=== PATIENT | male | born 1975 | race Hispanic/Latino ===

== ENCOUNTER 2023-01-28 10:00 | Outpatient (RCR) | payer OTHER, SELFPAY ==
--- NOTE | 2022-11-19 12:19 | PT.OIE ---
Current Diagnoses Traumatic arthropathy, right knee (11/19/22) Unilateral primary osteoarthritis, right hip (11/19/22) Other specified joint disorders, right hip (11/19/22) Trochanteric bursitis, right hip (11/19/22) Sprain of ligaments of lumbar spine, initial encounter (11/19/22) Bucket-handle tear of medial meniscus, current injury, right knee, initial encounter (11/19/22) Peripheral tear of medial meniscus, current injury, right knee, initial encounter (11/19/22) Complex tear of medial meniscus, current injury, right knee, initial encounter (11/19/22) Other tear of medial meniscus, current injury, right knee, initial encounter (11/19/22) Sprain of unspecified site of right knee, initial encounter (11/19/22) Visit Care Team Role Provider Type RENETTA Boateng Attending Provider Non-Staff Family Provider Primary Care Provider Referring Provider Specialty: Nursing Address: [address] [place] [address] [address], [place], [address] Email: Physical Therapy Initial Evaluation PT-OP-A Visit Information Start: 11/18/22 17:22 Freq: Status: Active Protocol: Document 11/19/22 12:19 AM (Rec: 11/19/22 14:14 AM [id number]) Out-Patient Physical Therapy Visit Information Visit Information Visit Type Initial Evaluation Visit Start Time 12:20 Visit Stop Time 13:10 Total Visit Minutes 50 Evaluation Information Evaluation Date 11/19/22 PT-OP-B Current Condition Start: 11/18/22 17:22 Freq: Status: Active Protocol: Document 11/19/22 12:19 AM (Rec: 11/19/22 14:14 AM [id number]) Current Condition History of Current Condition Onset Date 2004 Current Complaints bilateral knee, R hip, low back, neck pain and headaches, R shoulder pain History of Current Condition Pt had an injury to R knee in 2004 that resulted in meniscus tear, since then pt has had 20 surgeries. 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 The repair of his knee used a bone from R hip, which caused traumatic arthritis of the hip . Pt has low back pain as well . Pt has history of headaches and neck pain. Pt with reported weakness of R arm. Pt reports that he also has a meniscus tear on L knee. Hx of pulmonary embolism. Future Testing and Treatments Planned Pt sees his referring provider every 28 days. Treatment Goals Patient/Caregiver Goals Pt motivated to improve strength. Prior Functional Status Baseline Function- ADL's Independent Baseline Function- Mobility Independent Current Functional Impairments (Reported) Functional Limitations- ADL's Pt reports that he is independent, though it takes longer for him to do things because of pain and strength deficits. Pt reports difficulty sleeping and eating secondary pain. Pt with difficulty to stand to cook and do dishes. Functional Limitations- Mobility/Gait Pt ambulates with SPC. Pt reports that he was able to tolerate 2 hours of activity per day, but feels that his activity tolerance has been decreasing. Pt feels that he is able to tolerate 10 min of activity now. Functional Limitations- Recreation/ Pt unable to ride motorcycle Hobbies because of mobility impairments. Pt tried this at the beginning of the summer, but only able to do this for 15 minutes. PT-OP-C Subjective Start: 11/18/22 17:22 Freq: Status: Active Protocol: Document 11/19/22 12:19 AM (Rec: 11/19/22 14:14 AM [id number]) Patient Questionnaires Lower Extremity Functional Scale LEFS Score 26 LEFS Impairment 60 to 79% Impaired (Score 17- 31) Oswestry Low Back Index Oswestry Score 38 Oswestry Impairment 60 to 79% Impaired (Score 60- 79) OP-PT Pain Assessment Pain Assessment Grid Paper Pain Assessment Grid Completed Yes Location Back, knees, hips, neck Pain Location Details knees, R hip, low back, neck Intensity 8 Scale Used Numeric (0 - 10) Description- Other 8/10 at the worst Frequency Constant Pain Aggravating Factors Changing Position,Activity, Exercise,Standing,Sitting, Walking,Stair Climbing,Bending ,Lifting Pain Alleviating Factors Medication,Rest Other Pain Alleviating Factors Tens unit PT-OP-D Balance Start: 11/18/22 17:22 Freq: Status: Active Protocol: Document 11/19/22 12:19 AM (Rec: 11/19/22 14:14 AM [id number]) Balance Tests Single Limb Standing Single Limb- Right 11 Single Limb- Left 0 Tandem Tandem Standing 30 PT-OP-E Functional Tests Start: 11/18/22 17:22 Freq: Status: Active Protocol: Document 11/19/22 12:19 AM (Rec: 11/19/22 14:14 AM [id number]) Functional Tests 30 Second Sit to Stand Test Score 4 Comments Use of hands PT-OP-K Range of Motion Start: 11/18/22 17:22 Freq: Status: Active Protocol: Document 11/19/22 12:19 AM (Rec: 11/19/22 14:14 AM [id number]) Knee Goniometric Range of Motion Knee Right Flexion Active (degrees) 115 Extension Active (degrees) 0 Comments Hamstrings WNL Left Flexion Active (degrees) 115 Extension Active (degrees) 0 Comments Hamstrings WNL PT-OP-M Strength Start: 11/18/22 17:22 Freq: Status: Active Protocol: Document 11/19/22 12:19 AM (Rec: 11/19/22 14:14 AM [id number]) Hip Strength Hip Manual Muscle Testing Right Flexion (L2) 3+ Fair+ Abduction 3+ Fair+ Adduction 4+ Good+ Left Flexion (L2) 3+ Fair+ Abduction 3+ Fair+ Adduction 4+ Good+ Knee Strength Knee Manual Muscle Testing Right Flexion (S2) 4- Good- Extension (L3) 4- Good- Left Flexion (S2) 4- Good- Extension (L3) 4- Good- Ankle/Foot Strength Ankle and Foot Manual Muscle Testing Right Dorsiflexion (L4) 4+ Good+ Plantarflexion (S1) 4+ Good+ Left Dorsiflexion (L4) 4+ Good+ Plantarflexion (S1) 4+ Good+ PT-OP-Q Treatments Start: 11/18/22 17:22 Freq: Status: Active Protocol: Document 11/19/22 12:19 AM (Rec: 11/19/22 14:14 AM [id number]) Therapeutic Exercises Supine Exercises PPT Supine Exercise Name PPT Reps/Minutes 5x5 sec Comments cues for breath SAQ Side bilateral Reps/Minutes 5x2 sec Sidelying Exercises clamshells Side bilateral Reps/Minutes 10 PT-OP-T Assessment and Plan Start: 11/18/22 17:22 Freq: Status: Active Protocol: Document 11/19/22 12:19 AM (Rec: 11/19/22 14:14 AM [id number]) Physical Therapy Assessment Rehab Potential Rehabilitation Potential Good Evaluation Complexity Number of Personal Factors/Comorbidities 3 or More Number of Body Systems Impaired 3 Clinical Presentation at Evaluation Stable Impairments Impairments Activity Tolerance,Balance, Coordination,Edema,Functional Activities,Functional Mobility ,Gait,Pain,Posture,ROM,Soft Tissue Mobility,Strength Goals Pain Impairment Pain rating Impairment Pt reports pain at 8/10 at worst at knees, hip and low back. Short Term Goal (STG) Pt to report pain at 6/10 at worst. STG Duration 12/10/22 Repairer Wood Furniture Goal (LTG) Pt to report pain at <4/10 at worst LTG Duration 12/31/22 SLS Impairment Balance Impairment Pt unable to SLS on L LE and 11 seconds on R. Short Term Goal (STG) Pt able to SLS for 5 seconds on L LE. STG Duration 12/10/22 Repairer [employer] Furniture Goal (LTG) Pt able to SLS for 10 seconds on L LE. LTG Duration 12/31/22 30 sec STS squat Impairment Strength Impairment Pt able to complete 4 STS squats in 30 seconds with use of UE . Short Term Goal (STG) Pt able to complete 8 STS squats in 30 seconds with use of UE. STG Duration 12/10/22 Repairer Wood Furniture Goal (LTG) Pt ablet to complete 10 STS squats in 30 seconds without use of UE. LTG Duration 12/31/22 Oswestry Impairment Oswestry Impairment Pt with 76% disability per Oswestry. Short Term Goal (STG) Pt with 50% disability per Oswestry questionnaire STG Duration 12/10/22 Repairer Wood Furniture Goal (LTG) Pt with <25% disability per Oswestry questionnaire LTG Duration 12/31/22 LEFS Impairment Pt with LEFS score of 26/80 Short Term Goal (STG) Pt with LEFS score of 35/80 to decrease LE functional impairment. STG Duration 12/10/22 Repairer Wood Furniture Goal (LTG) Pt with LEFS score of 45/80 to decrease LE functional impairment. LTG Duration 12/31/22 Activity tolerance Impairment Standing tolerance Impairment Pt reports that he is able to stand for 10 min before needs to sit. Short Term Goal (STG) Pt able to stand for 20 min before needs to sit down to improve tolerance to cleaning/ cooking tasks. STG Duration 12/10/22 Repairer Wood Furniture Goal (LTG) Pt able to stand for 30 min before need to sit down secondary to pain/fatigue. LTG Duration 12/31/22 Assessment Summary Assessment Nas Bertrand presents to PT to address chronic pain at bilateral knees, low back, R hip and neck. Pt with history of 20 surgeries that he has had since 2004, with that first surgery being a R knee meniscus surgery. Pt has had a R TKA, though had an infection following and reports that he has not had proper PT following. Pt with strength deficits at B LE. Pt with difficulty with lower abdominal activation, secondary to prior abdominal surgeries and deconditioning. Pt demonstrates limitations at bilateral knee flexion at 115 deg. Pt with poor activity tolerance, secondary to reported pain and weakness. Pt demonstrates antalgic gait pattern, ambulating with SPC today. Pt tolerated HEP well, though encouraged to avoid painful ranges and do exercises to tolerance. Pt expresses motivation to improve strength and mobility. Pt would benefit from continued PT to improve strength, balance and mobility to improve tolerance to functional and recreational activities. Physical Therapy Plan Frequency and Duration Frequency of Treatment 2x/Week Duration of treatment (weeks) 6 Plan of Care Start Date 11/19/22 Plan of Care End Date 12/31/22 Therapeutic Interventions Therapeutic Interventions Balance Training,Coordination Training,Gait Training,Home Exercise Program,Joint Mobilizations,Manual Therapy, Neuromuscular Re-education, Patient/Caregiver Education, Self-Care/Home Management,Soft Tissue Mobilization,Taping, Therapeutic Activities, Therapeutic Exercises Modalities Cold Pack/Ice Massage,Electric Stimulation,Hot Packs, Ultrasound Next Visit Focus/Plan Next Note Type Treatment Note Next Visit Plan Further assessment of spine, progress LE strength and mobility, progress endurance
--- NOTE | 2022-11-21 12:19 | PT.OTN ---
Current Diagnoses Traumatic arthropathy, right knee (11/21/22) Unilateral primary osteoarthritis, right hip (11/21/22) Other specified joint disorders, right hip (11/21/22) Trochanteric bursitis, right hip (11/21/22) Sprain of ligaments of lumbar spine, initial encounter (11/21/22) Bucket-handle tear of medial meniscus, current injury, right knee, initial encounter (11/21/22) Peripheral tear of medial meniscus, current injury, right knee, initial encounter (11/21/22) Complex tear of medial meniscus, current injury, right knee, initial encounter (11/21/22) Other tear of medial meniscus, current injury, right knee, initial encounter (11/21/22) Sprain of unspecified site of right knee, initial encounter (11/21/22) Physical Therapy Treatment Note PT-OP-A Visit Information Start: 11/18/22 17:22 Freq: Status: Active Protocol: Document 11/21/22 12:19 AM (Rec: 11/21/22 13:07 AM [id number]) Out-Patient Physical Therapy Visit Information Visit Information Visit Type Treatment Note Visit Start Time 12:19 Visit Stop Time 12:59 Total Visit Minutes 40 Visit Number 2 PT-OP-B Current Condition Start: 11/18/22 17:22 Freq: Status: Active Protocol: Document 11/21/22 12:19 AM (Rec: 11/21/22 13:07 AM [id number]) Current Condition History of Current Condition Onset Date 2004 Current Complaints bilateral knee, R hip, low back, neck pain and headaches, R shoulder pain History of Current Condition Pt had an injury to R knee in 2004 that resulted in meniscus tear, since then pt has had 20 surgeries. 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 The repair of his knee used a bone from R hip, which caused traumatic arthritis of the hip . Pt has low back pain as well . Pt has history of headaches and neck pain. Pt with reported weakness of R arm. Pt reports that he also has a meniscus tear on L knee. Hx of pulmonary embolism. Future Testing and Treatments Planned Pt sees his referring provider every 28 days. PT-OP-C Subjective Start: 11/18/22 17:22 Freq: Status: Active Protocol: Document 11/21/22 12:19 AM (Rec: 11/21/22 13:07 AM [id number]) OP-PT Subjective Patient Comments Patient Comments Pt reports that he is tired today, secondary to difficulty with sleep. Pt has a PCP appt on 11/27/22 and 12/18/22. Pt reports that he has pushed activity levels the last few days. PT-OP-D Balance Start: 11/18/22 17:22 Freq: Status: Active Protocol: Document 11/19/22 12:19 AM (Rec: 11/19/22 14:14 AM [id number]) Balance Tests Single Limb Standing Single Limb- Right 11 Single Limb- Left 0 Tandem Tandem Standing 30 PT-OP-E Functional Tests Start: 11/18/22 17:22 Freq: Status: Active Protocol: Document 11/19/22 12:19 AM (Rec: 11/19/22 14:14 AM [id number]) Functional Tests 30 Second Sit to Stand Test Score 4 Comments Use of hands PT-OP-K Range of Motion Start: 11/18/22 17:22 Freq: Status: Active Protocol: Document 11/19/22 12:19 AM (Rec: 11/19/22 14:14 AM [id number]) Knee Goniometric Range of Motion Knee Right Flexion Active (degrees) 115 Extension Active (degrees) 0 Comments Hamstrings WNL Left Flexion Active (degrees) 115 Extension Active (degrees) 0 Comments Hamstrings WNL PT-OP-M Strength Start: 11/18/22 17:22 Freq: Status: Active Protocol: Document 11/19/22 12:19 AM (Rec: 11/19/22 14:14 AM [id number]) Hip Strength Hip Manual Muscle Testing Right Flexion (L2) 3+ Fair+ Abduction 3+ Fair+ Adduction 4+ Good+ Left Flexion (L2) 3+ Fair+ Abduction 3+ Fair+ Adduction 4+ Good+ Knee Strength Knee Manual Muscle Testing Right Flexion (S2) 4- Good- Extension (L3) 4- Good- Left Flexion (S2) 4- Good- Extension (L3) 4- Good- Ankle/Foot Strength Ankle and Foot Manual Muscle Testing Right Dorsiflexion (L4) 4+ Good+ Plantarflexion (S1) 4+ Good+ Left Dorsiflexion (L4) 4+ Good+ Plantarflexion (S1) 4+ Good+ PT-OP-Q Treatments Start: 11/18/22 17:22 Freq: Status: Active Protocol: Document 11/21/22 12:19 AM (Rec: 11/21/22 13:07 AM [id number]) Cardio Equipment Recumbent Stepper (Sci-Fit) Duration (Minutes) 6 Resistance 1 Seat Position 16 Therapeutic Exercises Supine Exercises BKFO Supine Exercise Name Bent knee fall out Side bilateral Reps/Minutes 2x5 ea LE quad sets Supine Exercise Name Quad sets Side bilateral Reps/Minutes 6x5 sec hold PPT Supine Exercise Name PPT Reps/Minutes 5x5 sec Comments cues for breath SAQ Side bilateral Equipment Used foam roll under knees Reps/Minutes x10 ea LE Standing Exercises calf raise Standing Exercise Name standing calf raise Side bilateral Equipment Used // bars Reps/Minutes x10 Standing side steps Standing Exercise Name side step Side bilateral Equipment Used // bars Reps/Minutes [address] Hip abduction Standing Exercise Name Hip abduction Side bilateral Equipment Used // bars Reps/Minutes x10 Calf stretch Standing Exercise Name standing calf stretch Side bilateral Equipment Used wedge with UE support from rail Reps/Minutes 2x30 sec PT-OP-T Assessment and Plan Start: 11/18/22 17:22 Freq: Status: Active Protocol: Document 11/21/22 12:19 AM (Rec: 11/21/22 13:07 AM [id number]) Physical Therapy Assessment Impairments Impairments Activity Tolerance,Balance, Coordination,Edema,Functional Activities,Functional Mobility ,Gait,Pain,Posture,ROM,Soft Tissue Mobility,Strength Goals Pain Impairment Pain rating Impairment Pt reports pain at 8/10 at worst at knees, hip and low back. Short Term Goal (STG) Pt to report pain at 6/10 at worst. STG Duration 12/10/22 Fdc Goal (LTG) Pt to report pain at <4/10 at worst LTG Duration 12/31/22 SLS Impairment Balance Impairment Pt unable to SLS on L LE and 11 seconds on R. Short Term Goal (STG) Pt able to SLS for 5 seconds on L LE. STG Duration 12/10/22 Fdc Goal (LTG) Pt able to SLS for 10 seconds on L LE. LTG Duration 12/31/22 30 sec STS squat Impairment Strength Impairment Pt able to complete 4 STS squats in 30 seconds with use of UE . Short Term Goal (STG) Pt able to complete 8 STS squats in 30 seconds with use of UE. STG Duration 12/10/22 Fdc Goal (LTG) Pt ablet to complete 10 STS squats in 30 seconds without use of UE. LTG Duration 12/31/22 Oswestry Impairment Oswestry Impairment Pt with 76% disability per Oswestry. Short Term Goal (STG) Pt with 50% disability per Oswestry questionnaire STG Duration 12/10/22 Relay Tester Helper Goal (LTG) Pt with <25% disability per Oswestry questionnaire LTG Duration 12/31/22 LEFS Impairment Pt with LEFS score of 26/80 Short Term Goal (STG) Pt with LEFS score of 35/80 to decrease LE functional impairment. STG Duration 12/10/22 Fdc Goal (LTG) Pt with LEFS score of 45/80 to decrease LE functional impairment. LTG Duration 12/31/22 Activity tolerance Impairment Standing tolerance Impairment Pt reports that he is able to stand for 10 min before needs to sit. Short Term Goal (STG) Pt able to stand for 20 min before needs to sit down to improve tolerance to cleaning/ cooking tasks. STG Duration 12/10/22 Fdc Goal (LTG) Pt able to stand for 30 min before need to sit down secondary to pain/fatigue. LTG Duration 12/31/22 Assessment Summary Assessment Pt with occasional reports of L knee cramping during CKC exercises. Pt challenged with lumbo-pelvic stability with BKFO, requiring cueing. Pt also requires cueing for breath during exercises. Pt will return to PT next week to gradually progress LE and trunk strength to improve tolerance to functional activities. Physical Therapy Plan Frequency and Duration Frequency of Treatment 2x/Week Duration of treatment (weeks) 6 Plan of Care Start Date 11/19/22 Plan of Care End Date 12/31/22 Therapeutic Interventions Therapeutic Interventions Balance Training,Coordination Training,Gait Training,Home Exercise Program,Joint Mobilizations,Manual Therapy, Neuromuscular Re-education, Patient/Caregiver Education, Self-Care/Home Management,Soft Tissue Mobilization,Taping, Therapeutic Activities, Therapeutic Exercises Modalities Cold Pack/Ice Massage,Electric Stimulation,Hot Packs, Ultrasound Next Visit Focus/Plan Next Note Type Treatment Note Next Visit Plan Further assessment of spine, progress LE strength and mobility, progress endurance
--- NOTE | 2022-11-26 16:12 | PT.OTN ---
Current Diagnoses Traumatic arthropathy, right knee (11/26/22) Unilateral primary osteoarthritis, right hip (11/26/22) Other specified joint disorders, right hip (11/26/22) Trochanteric bursitis, right hip (11/26/22) Sprain of ligaments of lumbar spine, initial encounter (11/26/22) Bucket-handle tear of medial meniscus, current injury, right knee, initial encounter (11/26/22) Peripheral tear of medial meniscus, current injury, right knee, initial encounter (11/26/22) Complex tear of medial meniscus, current injury, right knee, initial encounter (11/26/22) Other tear of medial meniscus, current injury, right knee, initial encounter (11/26/22) Sprain of unspecified site of right knee, initial encounter (11/26/22) Physical Therapy Treatment Note PT-OP-A Visit Information Start: 11/18/22 17:22 Freq: Status: Active Protocol: Document 11/26/22 09:11 SW (Rec: 11/26/22 10:00 [id number]) Out-Patient Physical Therapy Visit Information Visit Information Visit Type Treatment Note Visit Start Time 09:15 Visit Stop Time 10:00 Total Visit Minutes 45 Visit Number 3 Number of DIGITAL TRAFFIC COORDINATOR Visits 1 PT-OP-B Current Condition Start: 11/18/22 17:22 Freq: Status: Active Protocol: Document 11/21/22 12:19 AM (Rec: 11/21/22 13:07 AM [id number]) Current Condition History of Current Condition Onset Date 2004 Current Complaints bilateral knee, R hip, low back, neck pain and headaches, R shoulder pain History of Current Condition Pt had an injury to R knee in 2004 that resulted in meniscus tear, since then pt has had 20 surgeries. 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 The repair of his knee used a bone from R hip, which caused traumatic arthritis of the hip . Pt has low back pain as well . Pt has history of headaches and neck pain. Pt with reported weakness of R arm. Pt reports that he also has a meniscus tear on L knee. Hx of pulmonary embolism. Future Testing and Treatments Planned Pt sees his referring provider every 28 days. PT-OP-C Subjective Start: 11/18/22 17:22 Freq: Status: Active Protocol: Document 11/26/22 09:11 SW (Rec: 11/26/22 10:00 SW [id number]) OP-PT Subjective Patient Comments Patient Comments Pt reports it is hard to get going takes until about 12 to get the pain down. He states he is due for a cortisone shot . Pain at 5/6 out of 10. Pt reports he notices a differences with weight loss and exercise. PT-OP-D Balance Start: 11/18/22 17:22 Freq: Status: Active Protocol: Document 11/19/22 12:19 AM (Rec: 11/19/22 14:14 AM [id number]) Balance Tests Single Limb Standing Single Limb- Right 11 Single Limb- Left 0 Tandem Tandem Standing 30 PT-OP-E Functional Tests Start: 11/18/22 17:22 Freq: Status: Active Protocol: Document 11/19/22 12:19 AM (Rec: 11/19/22 14:14 AM [id number]) Functional Tests 30 Second Sit to Stand Test Score 4 Comments Use of hands PT-OP-K Range of Motion Start: 11/18/22 17:22 Freq: Status: Active Protocol: Document 11/19/22 12:19 AM (Rec: 11/19/22 14:14 AM [id number]) Knee Goniometric Range of Motion Knee Right Flexion Active (degrees) 115 Extension Active (degrees) 0 Comments Hamstrings WNL Left Flexion Active (degrees) 115 Extension Active (degrees) 0 Comments Hamstrings WNL PT-OP-M Strength Start: 11/18/22 17:22 Freq: Status: Active Protocol: Document 11/19/22 12:19 AM (Rec: 11/19/22 14:14 AM [id number]) Hip Strength Hip Manual Muscle Testing Right Flexion (L2) 3+ Fair+ Abduction 3+ Fair+ Adduction 4+ Good+ Left Flexion (L2) 3+ Fair+ Abduction 3+ Fair+ Adduction 4+ Good+ Knee Strength Knee Manual Muscle Testing Right Flexion (S2) 4- Good- Extension (L3) 4- Good- Left Flexion (S2) 4- Good- Extension (L3) 4- Good- Ankle/Foot Strength Ankle and Foot Manual Muscle Testing Right Dorsiflexion (L4) 4+ Good+ Plantarflexion (S1) 4+ Good+ Left Dorsiflexion (L4) 4+ Good+ Plantarflexion (S1) 4+ Good+ PT-OP-Q Treatments Start: 11/18/22 17:22 Freq: Status: Active Protocol: Document 11/26/22 09:11 (Rec: 11/26/22 10:00 [id number]) Cardio Equipment Recumbent Stepper (Sci-Fit) Duration (Minutes) 7 Resistance 1 Seat Position 16 Therapeutic Exercises Supine Exercises Resisted Flex Supine Exercise Name Alternating LE Comments Core strengthening BKFO Supine Exercise Name Bent knee fall out Side bilateral Reps/Minutes 2x5 ea LE quad sets Supine Exercise Name Quad sets Side bilateral Reps/Minutes 6x5 sec hold SAQ Side bilateral Equipment Used foam roll under knees Reps/Minutes x10 ea LE Sitting Exercises HS stretch Side bilateral Reps/Minutes 2 x 30 LAQ Sitting Exercise Name Seated LAQ Side bilateral Reps/Minutes x10 Standing Exercises Hip Flex Stretch Side bilateral Equipment Used @ counter Reps/Minutes 2 x 30 Hip Ext Standing Exercise Name Hip Ext Side bilateral Resistance AROM Equipment Used @ counter Reps/Minutes x10 calf raise Standing Exercise Name standing calf raise Side bilateral Equipment Used // bars Reps/Minutes x10 Hip abduction Standing Exercise Name Hip abduction Side bilateral Resistance AROM Equipment Used @ counter Reps/Minutes x10 Calf stretch Standing Exercise Name standing calf stretch Side bilateral Equipment Used wedge with UE support from rail Reps/Minutes 2x30 sec PT-OP-T Assessment and Plan Start: 11/18/22 17:22 Freq: Status: Active Protocol: Document 11/26/22 09:11 (Rec: 11/26/22 10:00 [id number]) Physical Therapy Assessment Goals Pain Impairment Pain rating Impairment Pt reports pain at 8/10 at worst at knees, hip and low back. Short Term Goal (STG) Pt to report pain at 6/10 at worst. STG Duration 12/10/22 Chief Chemist Goal (LTG) Pt to report pain at <4/10 at worst LTG Duration 12/31/22 SLS Impairment Balance Impairment Pt unable to SLS on L LE and 11 seconds on R. Short Term Goal (STG) Pt able to SLS for 5 seconds on L LE. STG Duration 12/10/22 Prison Goal (LTG) Pt able to SLS for 10 seconds on L LE. LTG Duration 12/31/22 30 sec STS squat Impairment Strength Impairment Pt able to complete 4 STS squats in 30 seconds with use of UE . Short Term Goal (STG) Pt able to complete 8 STS squats in 30 seconds with use of UE. STG Duration 12/10/22 Chief Chemist Goal (LTG) Pt ablet to complete 10 STS squats in 30 seconds without use of UE. LTG Duration 12/31/22 Oswestry Impairment Oswestry Impairment Pt with 76% disability per Oswestry. Short Term Goal (STG) Pt with 50% disability per Oswestry questionnaire STG Duration 12/10/22 Prison Goal (LTG) Pt with <25% disability per Oswestry questionnaire LTG Duration 12/31/22 LEFS Impairment Pt with LEFS score of 26/80 Short Term Goal (STG) Pt with LEFS score of 35/80 to decrease LE functional impairment. STG Duration 12/10/22 Chief Chemist Goal (LTG) Pt with LEFS score of 45/80 to decrease LE functional impairment. LTG Duration 12/31/22 Activity tolerance Impairment Standing tolerance Impairment Pt reports that he is able to stand for 10 min before needs to sit. Short Term Goal (STG) Pt able to stand for 20 min before needs to sit down to improve tolerance to cleaning/ cooking tasks. STG Duration 12/10/22 Prison Goal (LTG) Pt able to stand for 30 min before need to sit down secondary to pain/fatigue. LTG Duration 12/31/22 Assessment Summary Assessment Pt reports L knee discomfort throughout session, greater with WB exercises. Pt continues to require frequent cues for breathwork during exercises. Quick to fatigue during session today. Continued core progression this session. Issued HEP LE stretches. Physical Therapy Plan Frequency and Duration Frequency of Treatment 2x/Week Duration of treatment (weeks) 6 Plan of Care Start Date 11/19/22 Plan of Care End Date 12/31/22 Therapeutic Interventions Therapeutic Interventions Balance Training,Coordination Training,Gait Training,Home Exercise Program,Joint Mobilizations,Manual Therapy, Neuromuscular Re-education, Patient/Caregiver Education, Self-Care/Home Management,Soft Tissue Mobilization,Taping, Therapeutic Activities, Therapeutic Exercises Modalities Cold Pack/Ice Massage,Electric Stimulation,Hot Packs, Ultrasound Next Visit Focus/Plan Next Note Type Treatment Note Next Visit Plan Further assessment of spine, progress LE strength and mobility, progress endurance
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
--- NOTE | 2022-12-11 11:31 | PT.OTN ---
Current Diagnoses Traumatic arthropathy, right knee (12/11/22) Unilateral primary osteoarthritis, right hip (12/11/22) Other specified joint disorders, right hip (12/11/22) Trochanteric bursitis, right hip (12/11/22) Sprain of ligaments of lumbar spine, initial encounter (12/11/22) Bucket-handle tear of medial meniscus, current injury, right knee, initial encounter (12/11/22) Peripheral tear of medial meniscus, current injury, right knee, initial encounter (12/11/22) Complex tear of medial meniscus, current injury, right knee, initial encounter (12/11/22) Other tear of medial meniscus, current injury, right knee, initial encounter (12/11/22) Sprain of unspecified site of right knee, initial encounter (12/11/22) Physical Therapy Treatment Note PT-OP-A Visit Information Start: 11/18/22 17:22 Freq: Status: Active Protocol: Document 12/11/22 11:31 AM (Rec: 12/11/22 12:19 AM [id number]) Out-Patient Physical Therapy Visit Information Visit Information Visit Type Treatment Note Visit Start Time 11:32 Visit Stop Time 12:17 Total Visit Minutes 45 Visit Number 5 Number of VEHICLE TRIMMER Visits 2 PT-OP-B Current Condition Start: 11/18/22 17:22 Freq: Status: Active Protocol: Document 11/21/22 12:19 AM (Rec: 11/21/22 13:07 AM [id number]) Current Condition History of Current Condition Onset Date 2004 Current Complaints bilateral knee, R hip, low back, neck pain and headaches, R shoulder pain History of Current Condition Pt had an injury to R knee in 2004 that resulted in meniscus tear, since then pt has had 20 surgeries. 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 The repair of his knee used a bone from R hip, which caused traumatic arthritis of the hip . Pt has low back pain as well . Pt has history of headaches and neck pain. Pt with reported weakness of R arm. Pt reports that he also has a meniscus tear on L knee. Hx of pulmonary embolism. Future Testing and Treatments Planned Pt sees his referring provider every 28 days. PT-OP-C Subjective Start: 11/18/22 17:22 Freq: Status: Active Protocol: Document 12/11/22 11:31 AM (Rec: 12/11/22 12:19 AM [id number]) OP-PT Subjective Patient Comments Patient Comments Pt reports that he is stressed with life events, but PT is important to him. Pt reports that he continues to lose weight and feels that might be helping his joints. Pt reports that he follows up with Dr on 12/16/22 PT-OP-D Balance Start: 11/18/22 17:22 Freq: Status: Active Protocol: Document 11/19/22 12:19 AM (Rec: 11/19/22 14:14 AM [id number]) Balance Tests Single Limb Standing Single Limb- Right 11 Single Limb- Left 0 Tandem Tandem Standing 30 PT-OP-E Functional Tests Start: 11/18/22 17:22 Freq: Status: Active Protocol: Document 11/19/22 12:19 AM (Rec: 11/19/22 14:14 AM [id number]) Functional Tests 30 Second Sit to Stand Test Score 4 Comments Use of hands PT-OP-K Range of Motion Start: 11/18/22 17:22 Freq: Status: Active Protocol: Document 11/19/22 12:19 AM (Rec: 11/19/22 14:14 AM [id number]) Knee Goniometric Range of Motion Knee Right Flexion Active (degrees) 115 Extension Active (degrees) 0 Comments Hamstrings WNL Left Flexion Active (degrees) 115 Extension Active (degrees) 0 Comments Hamstrings WNL PT-OP-M Strength Start: 11/18/22 17:22 Freq: Status: Active Protocol: Document 11/19/22 12:19 AM (Rec: 11/19/22 14:14 AM [id number]) Hip Strength Hip Manual Muscle Testing Right Flexion (L2) 3+ Fair+ Abduction 3+ Fair+ Adduction 4+ Good+ Left Flexion (L2) 3+ Fair+ Abduction 3+ Fair+ Adduction 4+ Good+ Knee Strength Knee Manual Muscle Testing Right Flexion (S2) 4- Good- Extension (L3) 4- Good- Left Flexion (S2) 4- Good- Extension (L3) 4- Good- Ankle/Foot Strength Ankle and Foot Manual Muscle Testing Right Dorsiflexion (L4) 4+ Good+ Plantarflexion (S1) 4+ Good+ Left Dorsiflexion (L4) 4+ Good+ Plantarflexion (S1) 4+ Good+ PT-OP-Q Treatments Start: 11/18/22 17:22 Freq: Status: Active Protocol: Document 12/11/22 11:31 AM (Rec: 12/11/22 12:19 AM [id number]) Cardio Equipment Recumbent Stepper (Sci-Fit) Duration (Minutes) 6 Resistance 1 Seat Position 16 Other Try scooting seat back for next session Therapeutic Exercises Standing Exercises Wall posture Standing Exercise Name Abdominal activation against wall Reps/Minutes 10x5 sec Standing TKE Standing Exercise Name Standing TKE with ball Side bilateral Reps/Minutes 10x3 sec Hip Flex Stretch Side bilateral Equipment Used @ handrail Reps/Minutes x 30 Hip Ext Standing Exercise Name Hip Ext Side bilateral Resistance AROM Equipment Used @ counter Reps/Minutes x12 Comments cues for breathwork, upright posture calf raise Standing Exercise Name standing calf raise Side bilateral Equipment Used // bars Reps/Minutes x10 Comments cues for exhale w/ effort, pt self-corrects posture Hip abduction Standing Exercise Name Hip abduction Side bilateral Resistance AROM Equipment Used @ counter Reps/Minutes x12 Comments w/ breaks for L knee discomfort Calf stretch Standing Exercise Name standing calf stretch Side bilateral Equipment Used wedge with UE support from rail Reps/Minutes 2x30 sec Manual Therapy Treatment Soft Tissue Mobilization Knee Body Location Ubaldo Quads, adductors and ITB Mobilization Type Instrument Assisted,Rolling Intensity/Depth Moderate Body Position Supine Comments rolling pin, supine with beige round bolster under knees PT-OP-R Modalities Start: 11/18/22 17:22 Freq: Status: Active Protocol: Document 12/08/22 09:40 NBM (Rec: 12/08/22 11:25 NBM [id number]) Hot Pack/Cold Pack Treatment Cold Pack Location L knee Patient Position Hooklying Treatment Duration (minutes) 10 Patient Tolerance Good Comments LE bolster PT-OP-T Assessment and Plan Start: 11/18/22 17:22 Freq: Status: Active Protocol: Document 12/11/22 11:31 AM (Rec: 12/11/22 12:19 AM [id number]) Physical Therapy Assessment Goals Pain Impairment Pain rating Impairment Pt reports pain at 8/10 at worst at knees, hip and low back. Short Term Goal (STG) Pt to report pain at 6/10 at worst. STG Duration 12/10/22 Gas Generator Operator Goal (LTG) Pt to report pain at <4/10 at worst LTG Duration 12/31/22 SLS Impairment Balance Impairment Pt unable to SLS on L LE and 11 seconds on R. Short Term Goal (STG) Pt able to SLS for 5 seconds on L LE. STG Duration 12/10/22 Mcc Goal (LTG) Pt able to SLS for 10 seconds on L LE. LTG Duration 12/31/22 30 sec STS squat Impairment Strength Impairment Pt able to complete 4 STS squats in 30 seconds with use of UE . Short Term Goal (STG) Pt able to complete 8 STS squats in 30 seconds with use of UE. STG Duration 12/10/22 Gas Generator Operator Goal (LTG) Pt ablet to complete 10 STS squats in 30 seconds without use of UE. LTG Duration 12/31/22 Oswestry Impairment Oswestry Impairment Pt with 76% disability per Oswestry. Short Term Goal (STG) Pt with 50% disability per Oswestry questionnaire STG Duration 12/10/22 Mcc Goal (LTG) Pt with <25% disability per Oswestry questionnaire LTG Duration 12/31/22 LEFS Impairment Pt with LEFS score of 26/80 Short Term Goal (STG) Pt with LEFS score of 35/80 to decrease LE functional impairment. STG Duration 12/10/22 Mcc Goal (LTG) Pt with LEFS score of 45/80 to decrease LE functional impairment. LTG Duration 12/31/22 Activity tolerance Impairment Standing tolerance Impairment Pt reports that he is able to stand for 10 min before needs to sit. Short Term Goal (STG) Pt able to stand for 20 min before needs to sit down to improve tolerance to cleaning/ cooking tasks. STG Duration 12/10/22 Gas Generator Operator Goal (LTG) Pt able to stand for 30 min before need to sit down secondary to pain/fatigue. LTG Duration 12/31/22 Assessment Summary Assessment Pt continues to require cueing for breathwork with exercises . Pt requires occasional standing breaks during standing exercises. Pt reports feeling better post tx today and that he can stand up taller. Pt will return to PT next week to continue to progress LE and trunk strength as tolerated. Physical Therapy Plan Frequency and Duration Frequency of Treatment 2x/Week Duration of treatment (weeks) 6 Plan of Care Start Date 11/19/22 Plan of Care End Date 12/31/22 Next Visit Focus/Plan Next Note Type Treatment Note Next Visit Plan Continue to progress trunk/LE strength and mobility
--- NOTE | 2022-12-15 13:10 | PT.OTN ---
Current Diagnoses Traumatic arthropathy, right knee (12/15/22) Unilateral primary osteoarthritis, right hip (12/15/22) Other specified joint disorders, right hip (12/15/22) Trochanteric bursitis, right hip (12/15/22) Sprain of ligaments of lumbar spine, initial encounter (12/15/22) Bucket-handle tear of medial meniscus, current injury, right knee, initial encounter (12/15/22) Peripheral tear of medial meniscus, current injury, right knee, initial encounter (12/15/22) Complex tear of medial meniscus, current injury, right knee, initial encounter (12/15/22) Other tear of medial meniscus, current injury, right knee, initial encounter (12/15/22) Sprain of unspecified site of right knee, initial encounter (12/15/22) Physical Therapy Treatment Note PT-OP-A Visit Information Start: 11/18/22 17:22 Freq: Status: Active Protocol: Document 12/15/22 11:34 NB (Rec: 12/15/22 13:08 [facility] [id number]) Out-Patient Physical Therapy Visit Information Visit Information Visit Type Treatment Note Visit Start Time 11:34 Visit Stop Time 12:18 Total Visit Minutes 44 Visit Number 6 Number of SAUSAGE COOKER Visits 3 PT-OP-B Current Condition Start: 11/18/22 17:22 Freq: Status: Active Protocol: Document 11/21/22 12:19 AM (Rec: 11/21/22 13:07 AM [id number]) Current Condition History of Current Condition Onset Date 2004 Current Complaints bilateral knee, R hip, low back, neck pain and headaches, R shoulder pain History of Current Condition Pt had an injury to R knee in 2004 that resulted in meniscus tear, since then pt has had 20 surgeries. 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 The repair of his knee used a bone from R hip, which caused traumatic arthritis of the hip . Pt has low back pain as well . Pt has history of headaches and neck pain. Pt with reported weakness of R arm. Pt reports that he also has a meniscus tear on L knee. Hx of pulmonary embolism. Future Testing and Treatments Planned Pt sees his referring provider every 28 days. PT-OP-C Subjective Start: 11/18/22 17:22 Freq: Status: Active Protocol: Document 12/15/22 11:34 NBM (Rec: 12/15/22 13:08 NBM [id number]) OP-PT Subjective Patient Comments Patient Comments Nas reports he stayed in a hotel last night because his knee and back can't take sleeping in the car, but he can't afford to keep paying for the hotel. He thinks he left cane here last visit. PT feels really good. PT-OP-D Balance Start: 11/18/22 17:22 Freq: Status: Active Protocol: Document 11/19/22 12:19 AM (Rec: 11/19/22 14:14 AM [id number]) Balance Tests Single Limb Standing Single Limb- Right 11 Single Limb- Left 0 Tandem Tandem Standing 30 PT-OP-E Functional Tests Start: 11/18/22 17:22 Freq: Status: Active Protocol: Document 11/19/22 12:19 AM (Rec: 11/19/22 14:14 AM [id number]) Functional Tests 30 Second Sit to Stand Test Score 4 Comments Use of hands PT-OP-K Range of Motion Start: 11/18/22 17:22 Freq: Status: Active Protocol: Document 11/19/22 12:19 AM (Rec: 11/19/22 14:14 AM [id number]) Knee Goniometric Range of Motion Knee Right Flexion Active (degrees) 115 Extension Active (degrees) 0 Comments Hamstrings WNL Left Flexion Active (degrees) 115 Extension Active (degrees) 0 Comments Hamstrings WNL PT-OP-M Strength Start: 11/18/22 17:22 Freq: Status: Active Protocol: Document 11/19/22 12:19 AM (Rec: 11/19/22 14:14 AM [id number]) Hip Strength Hip Manual Muscle Testing Right Flexion (L2) 3+ Fair+ Abduction 3+ Fair+ Adduction 4+ Good+ Left Flexion (L2) 3+ Fair+ Abduction 3+ Fair+ Adduction 4+ Good+ Knee Strength Knee Manual Muscle Testing Right Flexion (S2) 4- Good- Extension (L3) 4- Good- Left Flexion (S2) 4- Good- Extension (L3) 4- Good- Ankle/Foot Strength Ankle and Foot Manual Muscle Testing Right Dorsiflexion (L4) 4+ Good+ Plantarflexion (S1) 4+ Good+ Left Dorsiflexion (L4) 4+ Good+ Plantarflexion (S1) 4+ Good+ PT-OP-Q Treatments Start: 11/18/22 17:22 Freq: Status: Active Protocol: Document 12/15/22 11:34 NBM (Rec: 12/15/22 13:08 NBM [id number]) Cardio Equipment Recumbent Stepper (Sci-Fit) Duration (Minutes) 6 Resistance 1 Seat Position 18 Other cues for tall posture, gentle TrA activation Therapeutic Exercises Standing Exercises Kitchen Sink stretch Standing Exercise Name thoracic elongation Side bilateral Equipment Used handrail Reps/Minutes x30s Comments cues for form, positive feedback response Wall posture Standing Exercise Name Abdominal activation against wall Equipment Used blue/white ball lumbar region Reps/Minutes 10x5 sec Comments vc foot placement, hip hinge - resolves L knee pain Standing TKE Standing Exercise Name Standing TKE with ball Side bilateral Equipment Used blue/white ball, wall Reps/Minutes 10x3 sec Hip Flex Stretch Side bilateral Equipment Used @ handrail, training stairs Reps/Minutes x 30s ea Hip Ext Standing Exercise Name Hip Ext Side bilateral Resistance AROM Equipment Used handrail Reps/Minutes 2x12 Comments cues for breathwork, upright posture, smaller range calf raise Standing Exercise Name AROM PF/DF Side bilateral Equipment Used LEIGH, handrail Reps/Minutes x20 Comments vc for eccentric control; positive feedback reponse Hip abduction Standing Exercise Name Hip abduction Side bilateral Resistance AROM Equipment Used @ counter Reps/Minutes x12 Comments w/ breaks for L knee discomfort Calf stretch Standing Exercise Name standing calf stretch Side bilateral Equipment Used wedge with UE support from rail Reps/Minutes 2x30 sec Manual Therapy Treatment Soft Tissue Mobilization Knee Body Location Ubaldo Quads L>R, adductors and ITB Mobilization Type Instrument Assisted,Rolling Intensity/Depth Moderate Body Position Supine Comments rolling pin, supine with beige round bolster under knees Self-Care/Home Management Treatment Education Patient Education Body Mechanics,Home Exercise Program,Safety Other Education Pt requests weight check again this visit. Discussed with pt variables which can affect weight on scale and encouraged pt to utilize weight trend over time rather than every day. Educated pt to keep in mind muscle mass weighs more than fat and pt has inconsistent lifestyle w/ high stressors at this time which can affect weight. Discussed importance of nutrition, and pt plans to discuss further w/ Dr. Pt has been sleeping in car and slept in hotel last night - discussed for TKE ex pt can use ball at wall, rolled towel /blanket/sweater, or folded pillow to perform. PT-OP-R Modalities Start: 11/18/22 17:22 Freq: Status: Active Protocol: Document 12/15/22 11:34 NBM (Rec: 12/15/22 13:08 [facility] [id number]) Hot Pack/Cold Pack Treatment Cold Pack Location L knee Patient Position Hooklying Treatment Duration (minutes) 10 Patient Tolerance Good Comments LE bolster w/ diaphragmatic breathing PT-OP-T Assessment and Plan Start: 11/18/22 17:22 Freq: Status: Active Protocol: Document 12/15/22 11:34 NBM (Rec: 12/15/22 13:08 [facility] [id number]) Physical Therapy Assessment Goals Pain Impairment Pain rating Impairment Pt reports pain at 8/10 at worst at knees, hip and low back. Short Term Goal (STG) Pt to report pain at 6/10 at worst. STG Duration 12/10/22 Usp Goal (LTG) Pt to report pain at <4/10 at worst LTG Duration 12/31/22 SLS Impairment Balance Impairment Pt unable to SLS on L LE and 11 seconds on R. Short Term Goal (STG) Pt able to SLS for 5 seconds on L LE. STG Duration 12/10/22 Usp Goal (LTG) Pt able to SLS for 10 seconds on L LE. LTG Duration 12/31/22 30 sec STS squat Impairment Strength Impairment Pt able to complete 4 STS squats in 30 seconds with use of UE . Short Term Goal (STG) Pt able to complete 8 STS squats in 30 seconds with use of UE. STG Duration 12/10/22 [employer] Sprayer Goal (LTG) Pt ablet to complete 10 STS squats in 30 seconds without use of UE. LTG Duration 12/31/22 Oswestry Impairment Oswestry Impairment Pt with 76% disability per Oswestry. Short Term Goal (STG) Pt with 50% disability per Oswestry questionnaire STG Duration 12/10/22 [employer] Sprayer Goal (LTG) Pt with <25% disability per Oswestry questionnaire LTG Duration 12/31/22 LEFS Impairment Pt with LEFS score of 26/80 Short Term Goal (STG) Pt with LEFS score of 35/80 to decrease LE functional impairment. STG Duration 12/10/22 Usp Goal (LTG) Pt with LEFS score of 45/80 to decrease LE functional impairment. LTG Duration 12/31/22 Activity tolerance Impairment Standing tolerance Impairment Pt reports that he is able to stand for 10 min before needs to sit. Short Term Goal (STG) Pt able to stand for 20 min before needs to sit down to improve tolerance to cleaning/ cooking tasks. STG Duration 12/10/22 Usp Goal (LTG) Pt able to stand for 30 min before need to sit down secondary to pain/fatigue. LTG Duration 12/31/22 Assessment Summary Assessment Nas continues to show commitment to Physical Therapy despite difficult life circumstances currently. He has bilateral knee discomfort L>R, possibly due to compensation patterns for R knee injury. Treatment focus on LE strengthening, education , and manual therapy. Pt shows improved self awareness of upright posture w/ chin tuck and TrA activation but continues to require cues for breath. He is challenged w/ standing hip ext/abd and form improves w/ mirroring. Education w/ pt not to fixate on weight as sole indicator of health, that muscle weighs more than fat, attention to nutrition, and possible community resources - pt to follow up general PCP next visit. Pt has been sleeping in car and slept in hotel last night - discussed options for TKE ex at wall as pt has positive feedback response. Palpable tension to L VMO improves with manual therapy. Physical Therapy Plan Frequency and Duration Frequency of Treatment 2x/Week Duration of treatment (weeks) 6 Plan of Care Start Date 11/19/22 Plan of Care End Date 12/31/22 Therapeutic Interventions Therapeutic Interventions Balance Training,Coordination Training,Gait Training,Home Exercise Program,Joint Mobilizations,Manual Therapy, Neuromuscular Re-education, Patient/Caregiver Education, Self-Care/Home Management,Soft Tissue Mobilization,Taping, Therapeutic Activities, Therapeutic Exercises Modalities Cold Pack/Ice Massage,Electric Stimulation,Hot Packs, Ultrasound Next Visit Focus/Plan Next Note Type Treatment Note Next Visit Plan Continue to progress trunk/LE strength and mobility
--- NOTE | 2022-12-25 11:33 | PT.OTN ---
Current Diagnoses Traumatic arthropathy, right knee (12/25/22) Unilateral primary osteoarthritis, right hip (12/25/22) Other specified joint disorders, right hip (12/25/22) Trochanteric bursitis, right hip (12/25/22) Sprain of ligaments of lumbar spine, initial encounter (12/25/22) Bucket-handle tear of medial meniscus, current injury, right knee, initial encounter (12/25/22) Peripheral tear of medial meniscus, current injury, right knee, initial encounter (12/25/22) Complex tear of medial meniscus, current injury, right knee, initial encounter (12/25/22) Other tear of medial meniscus, current injury, right knee, initial encounter (12/25/22) Sprain of unspecified site of right knee, initial encounter (12/25/22) Physical Therapy Treatment Note PT-OP-A Visit Information Start: 11/18/22 17:22 Freq: Status: Active Protocol: Document 12/25/22 11:33 AM (Rec: 12/25/22 17:27 AM [id number]) Out-Patient Physical Therapy Visit Information Visit Information Visit Type Progress Note Visit Start Time 11:33 Visit Stop Time 12:15 Total Visit Minutes 42 Visit Number 7 Number of REFUELING RAMPMAN Visits 3 PT-OP-B Current Condition Start: 11/18/22 17:22 Freq: Status: Active Protocol: Document 11/21/22 12:19 AM (Rec: 11/21/22 13:07 AM [id number]) Current Condition History of Current Condition Onset Date 2004 Current Complaints bilateral knee, R hip, low back, neck pain and headaches, R shoulder pain History of Current Condition Pt had an injury to R knee in 2004 that resulted in meniscus tear, since then pt has had 20 surgeries. 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 The repair of his knee used a bone from R hip, which caused traumatic arthritis of the hip . Pt has low back pain as well . Pt has history of headaches and neck pain. Pt with reported weakness of R arm. Pt reports that he also has a meniscus tear on L knee. Hx of pulmonary embolism. Future Testing and Treatments Planned Pt sees his referring provider every 28 days. PT-OP-C Subjective Start: 11/18/22 17:22 Freq: Status: Active Protocol: Document 12/25/22 11:33 AM (Rec: 12/25/22 17:27 AM [id number]) OP-PT Subjective Patient Comments Patient Comments Pt reports that he has been staying in hotels recently, but has been in contact with assistance for housing placement. Pt reports that he feels a little fuzzy today because he started taking suboxone. 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 Patient Questionnaires Lower Extremity Functional Scale LEFS Score 31 LEFS Impairment 60 to 79% Impaired (Score 17- 31) Oswestry Low Back Index Oswestry Score 30/50 Oswestry Impairment 60 to 79% Impaired (Score 60- 79) PT-OP-D Balance Start: 11/18/22 17:22 Freq: Status: Active Protocol: Document 11/19/22 12:19 AM (Rec: 11/19/22 14:14 AM [id number]) Balance Tests Single Limb Standing Single Limb- Right 11 Single Limb- Left 0 Tandem Tandem Standing 30 PT-OP-E Functional Tests Start: 11/18/22 17:22 Freq: Status: Active Protocol: Document 11/19/22 12:19 AM (Rec: 11/19/22 14:14 AM [id number]) Functional Tests 30 Second Sit to Stand Test Score 4 Comments Use of hands PT-OP-K Range of Motion Start: 11/18/22 17:22 Freq: Status: Active Protocol: Document 11/19/22 12:19 AM (Rec: 11/19/22 14:14 AM [id number]) Knee Goniometric Range of Motion Knee Right Flexion Active (degrees) 115 Extension Active (degrees) 0 Comments Hamstrings WNL Left Flexion Active (degrees) 115 Extension Active (degrees) 0 Comments Hamstrings WNL PT-OP-M Strength Start: 11/18/22 17:22 Freq: Status: Active Protocol: Document 11/19/22 12:19 AM (Rec: 11/19/22 14:14 AM [id number]) Hip Strength Hip Manual Muscle Testing Right Flexion (L2) 3+ Fair+ Abduction 3+ Fair+ Adduction 4+ Good+ Left Flexion (L2) 3+ Fair+ Abduction 3+ Fair+ Adduction 4+ Good+ Knee Strength Knee Manual Muscle Testing Right Flexion (S2) 4- Good- Extension (L3) 4- Good- Left Flexion (S2) 4- Good- Extension (L3) 4- Good- Ankle/Foot Strength Ankle and Foot Manual Muscle Testing Right Dorsiflexion (L4) 4+ Good+ Plantarflexion (S1) 4+ Good+ Left Dorsiflexion (L4) 4+ Good+ Plantarflexion (S1) 4+ Good+ PT-OP-Q Treatments Start: 11/18/22 17:22 Freq: Status: Active Protocol: Document 12/25/22 11:33 AM (Rec: 12/25/22 17:27 AM [id number]) Cardio Equipment Recumbent Stepper (Sci-Fit) Duration (Minutes) 6 Resistance 1.5 Seat Position 18 Other cues for tall posture, gentle TrA activation Gym Equipment Shuttle Recovery Bilateral squat Resistance 50# Shuttle Recovery Platform Stable Reps/Time 3x10 Therapeutic Exercises Supine Exercises SAQ Side bilateral Resistance 2# Reps/Minutes 2x10 Standing Exercises Chair squat Equipment Used hi-low table at 23 in Reps/Minutes x10 Standing TKE Standing Exercise Name Standing TKE with ball Side bilateral Equipment Used blue/white ball, wall Reps/Minutes 10x3 sec Hip Ext Standing Exercise Name Hip Ext Side bilateral Resistance AROM Equipment Used handrail Reps/Minutes 2x12 Comments cues for breathwork, upright posture, smaller range calf raise Standing Exercise Name AROM PF/DF Side bilateral Equipment Used handrail Reps/Minutes x20 Comments vc for eccentric control; positive feedback reponse Hip abduction Standing Exercise Name Hip abduction Side bilateral Resistance AROM Equipment Used @ counter Reps/Minutes x15 Comments w/ breaks for L knee discomfort Calf stretch Standing Exercise Name standing calf stretch Side bilateral Equipment Used wedge with UE support from rail Reps/Minutes 2x30 sec PT-OP-R Modalities Start: 11/18/22 17:22 Freq: Status: Active Protocol: Document 12/15/22 11:34 NBM (Rec: 12/15/22 13:08 NBM [id number]) Hot Pack/Cold Pack Treatment Cold Pack Location L knee Patient Position Hooklying Treatment Duration (minutes) 10 Patient Tolerance Good Comments AMY cline w/ diaphragmatic breathing PT-OP-T Assessment and Plan Start: 11/18/22 17:22 Freq: Status: Active Protocol: Document 12/25/22 11:33 AM (Rec: 12/25/22 17:27 AM [id number]) Physical Therapy Assessment Goals Pain Impairment Pain rating Impairment Pt reports pain at 8/10 at worst at knees, hip and low back. Short Term Goal (STG) Pt to report pain at 6/10 at worst. 12/25/22: Progressing towards goal; Pt reports pain has been 6-7/10 at the worst. STG Duration 12/10/22 Half-Way Goal (LTG) Pt to report pain at <4/10 at worst LTG Duration 12/31/22 SLS Impairment Balance Impairment Pt unable to SLS on L LE and 11 seconds on R. Short Term Goal (STG) Pt able to SLS for 5 seconds on L LE. Goal met on 12/25/22. Able to hold 5 seconds. STG Duration 12/10/22-achieved Reconciliation Analyst Goal (LTG) Pt able to SLS for 10 seconds on L LE. LTG Duration 12/31/22 30 sec STS squat Impairment Strength Impairment Pt able to complete 4 STS squats in 30 seconds with use of UE . Short Term Goal (STG) Pt able to complete 8 STS squats in 30 seconds with use of UE. 12/25/22: Progressing towards goal. Pt able to do 6 without use of hands at height of 23 inches. STG Duration 12/10/22 Reconciliation Analyst Goal (LTG) Pt ablet to complete 10 STS squats in 30 seconds without use of UE. LTG Duration 12/31/22 Oswestry Impairment Oswestry Impairment Pt with 76% disability per Oswestry. Short Term Goal (STG) Pt with 50% disability per Oswestry questionnaire 12/25/22: Pt progressing towards goal. Pt with score of 60%. STG Duration 12/10/22 Half-Way Goal (LTG) Pt with <25% disability per Oswestry questionnaire LTG Duration 12/31/22 LEFS Impairment Pt with LEFS score of 26/80 Short Term Goal (STG) Pt with LEFS score of 35/80 to decrease LE functional impairment. Progressing towards goal 31/80 on 12/26/22 STG Duration 12/10/22 Half-Way Goal (LTG) Pt with LEFS score of 45/80 to decrease LE functional impairment. LTG Duration 12/31/22 Activity tolerance Impairment Standing tolerance Impairment Pt reports that he is able to stand for 10 min before needs to sit. Short Term Goal (STG) Pt able to stand for 20 min before needs to sit down to improve tolerance to cleaning/ cooking tasks. Goal unmet on 12/25/22: Pt reports that he is able to stand for 5-10 min before he needs to sit secondary to pain and weakness. STG Duration 12/10/22 Half-Way Goal (LTG) Pt able to stand for 30 min before need to sit down secondary to pain/fatigue. LTG Duration 12/31/22 Assessment Summary Assessment Pt tolerated PRE well. Pt continues to be motivated to increase strength during tx sessions. Pt reports cueing for breathwork during exercises as pt tends to hold his breath. Pt demonstrates improving endurance and tolerance to standing exercises. Pt demonstrates improvement in both LEFS and Oswestry scores compared to IE . Pt making progress towards goals. Pt continues to be challenged with weightbaring activities secondary to L knee pain. Pt would benefit from continued PT to progress strength and mobility to improve tolerance to functional activities. Physical Therapy Plan Frequency and Duration Frequency of Treatment 2x/Week Duration of treatment (weeks) 6 Plan of Care Start Date 11/19/22 Plan of Care End Date 12/31/22 Therapeutic Interventions Therapeutic Interventions Balance Training,Coordination Training,Gait Training,Home Exercise Program,Joint Mobilizations,Manual Therapy, Neuromuscular Re-education, Patient/Caregiver Education, Self-Care/Home Management,Soft Tissue Mobilization,Taping, Therapeutic Activities, Therapeutic Exercises Modalities Cold Pack/Ice Massage,Electric Stimulation,Hot Packs, Ultrasound Next Visit Focus/Plan Next Note Type Treatment Note Next Visit Plan Continue to progress trunk/LE strength and mobility
--- NOTE | 2022-12-29 13:54 | PT.OTN ---
Current Diagnoses Traumatic arthropathy, right knee (12/29/22) Unilateral primary osteoarthritis, right hip (12/29/22) Other specified joint disorders, right hip (12/29/22) Trochanteric bursitis, right hip (12/29/22) Sprain of ligaments of lumbar spine, initial encounter (12/29/22) Bucket-handle tear of medial meniscus, current injury, right knee, initial encounter (12/29/22) Peripheral tear of medial meniscus, current injury, right knee, initial encounter (12/29/22) Complex tear of medial meniscus, current injury, right knee, initial encounter (12/29/22) Other tear of medial meniscus, current injury, right knee, initial encounter (12/29/22) Sprain of unspecified site of right knee, initial encounter (12/29/22) Physical Therapy Treatment Note PT-OP-A Visit Information Start: 11/18/22 17:22 Freq: Status: Active Protocol: Document 12/29/22 11:31 NB (Rec: 12/29/22 12:25 [facility] [id number]) Out-Patient Physical Therapy Visit Information Visit Information Visit Type Treatment Note Visit Start Time 11:42 Visit Stop Time 12:15 Total Visit Minutes 33 Visit Number 8 Number of CROSSING TENDER Visits 1 PT-OP-B Current Condition Start: 11/18/22 17:22 Freq: Status: Active Protocol: Document 11/21/22 12:19 AM (Rec: 11/21/22 13:07 AM [id number]) Current Condition History of Current Condition Onset Date 2004 Current Complaints bilateral knee, R hip, low back, neck pain and headaches, R shoulder pain History of Current Condition Pt had an injury to R knee in 2004 that resulted in meniscus tear, since then pt has had 20 surgeries. 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 The repair of his knee used a bone from R hip, which caused traumatic arthritis of the hip . Pt has low back pain as well . Pt has history of headaches and neck pain. Pt with reported weakness of R arm. Pt reports that he also has a meniscus tear on L knee. Hx of pulmonary embolism. Future Testing and Treatments Planned Pt sees his referring provider every 28 days. PT-OP-C Subjective Start: 11/18/22 17:22 Freq: Status: Active Protocol: Document 12/29/22 11:31 NBM (Rec: 12/29/22 12:25 NBM [id number]) OP-PT Subjective Patient Comments Patient Comments Nas apologizes for being late due to struggling to find water for dog. He states he pushed it too much last visit and was sore for a couple of days in his hip and lower back. PT-OP-D Balance Start: 11/18/22 17:22 Freq: Status: Active Protocol: Document 11/19/22 12:19 AM (Rec: 11/19/22 14:14 AM [id number]) Balance Tests Single Limb Standing Single Limb- Right 11 Single Limb- Left 0 Tandem Tandem Standing 30 PT-OP-E Functional Tests Start: 11/18/22 17:22 Freq: Status: Active Protocol: Document 11/19/22 12:19 AM (Rec: 11/19/22 14:14 AM [id number]) Functional Tests 30 Second Sit to Stand Test Score 4 Comments Use of hands PT-OP-K Range of Motion Start: 11/18/22 17:22 Freq: Status: Active Protocol: Document 11/19/22 12:19 AM (Rec: 11/19/22 14:14 AM [id number]) Knee Goniometric Range of Motion Knee Right Flexion Active (degrees) 115 Extension Active (degrees) 0 Comments Hamstrings WNL Left Flexion Active (degrees) 115 Extension Active (degrees) 0 Comments Hamstrings WNL PT-OP-M Strength Start: 11/18/22 17:22 Freq: Status: Active Protocol: Document 11/19/22 12:19 AM (Rec: 11/19/22 14:14 AM [id number]) Hip Strength Hip Manual Muscle Testing Right Flexion (L2) 3+ Fair+ Abduction 3+ Fair+ Adduction 4+ Good+ Left Flexion (L2) 3+ Fair+ Abduction 3+ Fair+ Adduction 4+ Good+ Knee Strength Knee Manual Muscle Testing Right Flexion (S2) 4- Good- Extension (L3) 4- Good- Left Flexion (S2) 4- Good- Extension (L3) 4- Good- Ankle/Foot Strength Ankle and Foot Manual Muscle Testing Right Dorsiflexion (L4) 4+ Good+ Plantarflexion (S1) 4+ Good+ Left Dorsiflexion (L4) 4+ Good+ Plantarflexion (S1) 4+ Good+ PT-OP-Q Treatments Start: 11/18/22 17:22 Freq: Status: Active Protocol: Document 12/29/22 11:31 NBM (Rec: 12/29/22 12:25 [facility] [id number]) Cardio Equipment Recumbent Elliptical (Biodex) Duration (Minutes) 10 Resistance 1>3 at 3' Seat Position 13 Gym Equipment Shuttle Recovery Bilateral squat Details vc pain-free range Resistance 62# Shuttle Recovery Platform Stable Reps/Time 2x10 Therapeutic Exercises Standing Exercises Standing TKE Standing Exercise Name Standing TKE with ball Side bilateral Equipment Used blue/white ball, wall Reps/Minutes 8x5 sec calf raise Standing Exercise Name AROM PF/DF Side bilateral Equipment Used LEIGH, handrail Reps/Minutes x12 Comments dc'd d/t pt's report of L knee pain Calf stretch Standing Exercise Name standing calf stretch Side bilateral Equipment Used wedge with UE support from rail Reps/Minutes 2x30 sec Manual Therapy Treatment Soft Tissue Mobilization Knee Body Location Ubaldo Quads L>R, adductors and ITB Mobilization Type Instrument Assisted,Rolling Intensity/Depth Moderate Body Position Supine Comments rolling pin, supine with beige round bolster under knees Taping L knee Body Location L knee Treatment Focus knee stability (medial meniscus and patellar tendon) Type of Tape Kinesio Tape Skin Inspection intact Comments 1 I-strip anchored lateral to patellar tendon up medial knee joint for medial mensiscus support. 1 Y-strip anchored inferior to patella, around patella and anchored on distal quads. Pt i/s to remove after 5 days or if reaction such as rash/ itching occurs. PT-OP-R Modalities Start: 11/18/22 17:22 Freq: Status: Active Protocol: Document 12/29/22 11:31 NBM (Rec: 12/29/22 13:41 [facility] [id number]) Hot Pack/Cold Pack Treatment Cold Pack Location L knee Patient Position Hooklying Treatment Duration (minutes) 10 Patient Tolerance Good Comments LE bolster w/ diaphragmatic breathing PT-OP-T Assessment and Plan Start: 11/18/22 17:22 Freq: Status: Active Protocol: Document 12/29/22 11:31 NBM (Rec: 12/29/22 12:25 [facility] [id number]) Physical Therapy Assessment Goals Pain Impairment Pain rating Impairment Pt reports pain at 8/10 at worst at knees, hip and low back. Short Term Goal (STG) Pt to report pain at 6/10 at worst. 12/25/22: Progressing towards goal; Pt reports pain has been 6-7/10 at the worst. STG Duration 12/10/22 Circus Laborer Goal (LTG) Pt to report pain at <4/10 at worst LTG Duration 12/31/22 SLS Impairment Balance Impairment Pt unable to SLS on L LE and 11 seconds on R. Short Term Goal (STG) Pt able to SLS for 5 seconds on L LE. Goal met on 12/25/22. Able to hold 5 seconds. STG Duration 12/10/22-achieved Circus Laborer Goal (LTG) Pt able to SLS for 10 seconds on L LE. LTG Duration 12/31/22 30 sec STS squat Impairment Strength Impairment Pt able to complete 4 STS squats in 30 seconds with use of UE . Short Term Goal (STG) Pt able to complete 8 STS squats in 30 seconds with use of UE. 12/25/22: Progressing towards goal. Pt able to do 6 without use of hands at height of 23 inches. STG Duration 12/10/22 Circus Laborer Goal (LTG) Pt ablet to complete 10 STS squats in 30 seconds without use of UE. LTG Duration 12/31/22 Oswestry Impairment Oswestry Impairment Pt with 76% disability per Oswestry. Short Term Goal (STG) Pt with 50% disability per Oswestry questionnaire 12/25/22: Pt progressing towards goal. Pt with score of 60%. STG Duration 12/10/22 Jail Goal (LTG) Pt with <25% disability per Oswestry questionnaire LTG Duration 12/31/22 LEFS Impairment Pt with LEFS score of 26/80 Short Term Goal (STG) Pt with LEFS score of 35/80 to decrease LE functional impairment. Progressing towards goal 31/80 on 12/26/22 STG Duration 12/10/22 Jail Goal (LTG) Pt with LEFS score of 45/80 to decrease LE functional impairment. LTG Duration 12/31/22 Activity tolerance Impairment Standing tolerance Impairment Pt reports that he is able to stand for 10 min before needs to sit. Short Term Goal (STG) Pt able to stand for 20 min before needs to sit down to improve tolerance to cleaning/ cooking tasks. Goal unmet on 12/25/22: Pt reports that he is able to stand for 5-10 min before he needs to sit secondary to pain and weakness. STG Duration 12/10/22 Jail Goal (LTG) Pt able to stand for 30 min before need to sit down secondary to pain/fatigue. LTG Duration 12/31/22 Assessment Summary Assessment Nas presents with SPC and increased L knee pain which pt attributes to increased time in vehicle. L knee pain increases with therapeutic ex's and improves with seated rest breaks. At visit L knee pain improved with terminal knee extension ex at the wall but today ex is discontinued after 8 reps x5SH due to increased L knee pain. Kinesiotape applied to L knee for increased knee stability. Pt is instructed to remove after 5 days or if reaction such as rash/itching occurs. Short session due to pt's late arrival. Physical Therapy Plan Frequency and Duration Frequency of Treatment 2x/Week Duration of treatment (weeks) 6 Plan of Care Start Date 11/19/22 Plan of Care End Date 12/31/22 Therapeutic Interventions Therapeutic Interventions Balance Training,Coordination Training,Gait Training,Home Exercise Program,Joint Mobilizations,Manual Therapy, Neuromuscular Re-education, Patient/Caregiver Education, Self-Care/Home Management,Soft Tissue Mobilization,Taping, Therapeutic Activities, Therapeutic Exercises Modalities Cold Pack/Ice Massage,Electric Stimulation,Hot Packs, Ultrasound Next Visit Focus/Plan Next Note Type Treatment Note Next Visit Plan Consider gait training w/ new SPC. POC: Continue to progress trunk/LE strength and mobility
--- NOTE | 2023-01-08 11:34 | PT.OTN ---
Current Diagnoses Traumatic arthropathy, right knee (01/08/23) Unilateral primary osteoarthritis, right hip (01/08/23) Other specified joint disorders, right hip (01/08/23) Trochanteric bursitis, right hip (01/08/23) Sprain of ligaments of lumbar spine, initial encounter (01/08/23) Bucket-handle tear of medial meniscus, current injury, right knee, initial encounter (01/08/23) Peripheral tear of medial meniscus, current injury, right knee, initial encounter (01/08/23) Complex tear of medial meniscus, current injury, right knee, initial encounter (01/08/23) Other tear of medial meniscus, current injury, right knee, initial encounter (01/08/23) Sprain of unspecified site of right knee, initial encounter (01/08/23) Physical Therapy Treatment Note PT-OP-A Visit Information Start: 11/18/22 17:22 Freq: Status: Active Protocol: Document 01/08/23 11:34 AM (Rec: 01/08/23 17:35 AM [id number]) Out-Patient Physical Therapy Visit Information Visit Information Visit Type Treatment Note Visit Start Time 11:34 Visit Stop Time 12:15 Total Visit Minutes 41 Visit Number 9 Number of MILK SAMPLER Visits 4 PT-OP-B Current Condition Start: 11/18/22 17:22 Freq: Status: Active Protocol: Document 11/21/22 12:19 AM (Rec: 11/21/22 13:07 AM [id number]) Current Condition History of Current Condition Onset Date 2004 Current Complaints bilateral knee, R hip, low back, neck pain and headaches, R shoulder pain History of Current Condition Pt had an injury to R knee in 2004 that resulted in meniscus tear, since then pt has had 20 surgeries. 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 The repair of his knee used a bone from R hip, which caused traumatic arthritis of the hip . Pt has low back pain as well . Pt has history of headaches and neck pain. Pt with reported weakness of R arm. Pt reports that he also has a meniscus tear on L knee. Hx of pulmonary embolism. Future Testing and Treatments Planned Pt sees his referring provider every 28 days. PT-OP-C Subjective Start: 11/18/22 17:22 Freq: Status: Active Protocol: Document 01/08/23 11:34 AM (Rec: 01/08/23 12:20 AM [id number]) OP-PT Subjective Patient Comments Patient Comments Keven apologizes for missing last tx session as he knows at this is important, but has complicated living situation. Pt is getting an injection for pain today that will replace the suboxone. Pt had imaging of R hip with contrast 2 days ago, though does not have results yet. Pt will Dr. Garcia on Jan 26. Pt reports that he is sore today. Pt reports good compliance with HEP. PT-OP-D Balance Start: 11/18/22 17:22 Freq: Status: Active Protocol: Document 11/19/22 12:19 AM (Rec: 11/19/22 14:14 AM [id number]) Balance Tests Single Limb Standing Single Limb- Right 11 Single Limb- Left 0 Tandem Tandem Standing 30 PT-OP-E Functional Tests Start: 11/18/22 17:22 Freq: Status: Active Protocol: Document 01/08/23 11:34 AM (Rec: 01/08/23 12:20 AM [id number]) Functional Tests 30 Second Sit to Stand Test Score 4 Comments 23 inches PT-OP-K Range of Motion Start: 11/18/22 17:22 Freq: Status: Active Protocol: Document 01/08/23 11:34 AM (Rec: 01/08/23 12:20 AM [id number]) Knee Goniometric Range of Motion Knee Right Flexion Active (degrees) 120 Extension Active (degrees) 0 Left Flexion Active (degrees) 118 Extension Active (degrees) 0 PT-OP-M Strength Start: 11/18/22 17:22 Freq: Status: Active Protocol: Document 11/19/22 12:19 AM (Rec: 11/19/22 14:14 AM [id number]) Hip Strength Hip Manual Muscle Testing Right Flexion (L2) 3+ Fair+ Abduction 3+ Fair+ Adduction 4+ Good+ Left Flexion (L2) 3+ Fair+ Abduction 3+ Fair+ Adduction 4+ Good+ Knee Strength Knee Manual Muscle Testing Right Flexion (S2) 4- Good- Extension (L3) 4- Good- Left Flexion (S2) 4- Good- Extension (L3) 4- Good- Ankle/Foot Strength Ankle and Foot Manual Muscle Testing Right Dorsiflexion (L4) 4+ Good+ Plantarflexion (S1) 4+ Good+ Left Dorsiflexion (L4) 4+ Good+ Plantarflexion (S1) 4+ Good+ PT-OP-Q Treatments Start: 11/18/22 17:22 Freq: Status: Active Protocol: Document 01/08/23 11:34 AM (Rec: 01/08/23 12:20 AM [id number]) Cardio Equipment Recumbent Elliptical (Biodex) Duration (Minutes) 10 Resistance 3 Seat Position 13 Therapeutic Exercises Supine Exercises SAQ Side bilateral Resistance 2# Reps/Minutes 2x10 Standing Exercises Chair squat Reps/Minutes x5 Calf stretch Standing Exercise Name standing calf stretch Side bilateral Equipment Used wedge with UE support from rail Reps/Minutes 2x30 sec Neuro Re-Education Treatment Balance Activities SLS Equipment at railing Comments Pt demonstrates hip drop on R. PT-OP-R Modalities Start: 11/18/22 17:22 Freq: Status: Active Protocol: Document 12/29/22 11:31 NBM (Rec: 12/29/22 13:41 NBM [id number]) Hot Pack/Cold Pack Treatment Cold Pack Location L knee Patient Position Hooklying Treatment Duration (minutes) 10 Patient Tolerance Good Comments LE bolster w/ diaphragmatic breathing PT-OP-T Assessment and Plan Start: 11/18/22 17:22 Freq: Status: Active Protocol: Document 01/08/23 11:34 AM (Rec: 01/08/23 12:20 AM [id number]) Physical Therapy Assessment Goals Pain Impairment Pain rating Impairment Pt reports pain at 8/10 at worst at knees, hip and low back. Short Term Goal (STG) Pt to report pain at 6/10 at worst. 12/25/22: Progressing towards goal; Pt reports pain has been 6-7/10 at the worst. STG Duration 12/10/22 Asbestos Wire Finisher Goal (LTG) Pt to report pain at <4/10 at worst 01/08/23: Pt reports pain at 5 -6/10. Progressing towards goal. LTG Duration 12/31/22 SLS Impairment Balance Impairment Pt unable to SLS on L LE and 11 seconds on R. Short Term Goal (STG) Pt able to SLS for 5 seconds on L LE. Goal met on 12/25/22. Able to hold 5 seconds. STG Duration 12/10/22-achieved [facility] Goal (LTG) Pt able to SLS for 10 seconds on L LE. Goal met: 01/08/23 PT able to hold R LE SLS for 40 seconds. Pt able to hold for 6 seconds on L. LTG Duration 12/31/22 30 sec STS squat Impairment Strength Impairment Pt able to complete 4 STS squats in 30 seconds with use of UE . Short Term Goal (STG) Pt able to complete 8 STS squats in 30 seconds with use of UE. 12/25/22: Progressing towards goal. Pt able to do 6 without use of hands at height of 23 inches. STG Duration 12/10/22 Senior Care Goal (LTG) Pt ablet to complete 10 STS squats in 30 seconds without use of UE. 01/08/23: Pt able to do 4 in 30 seconds. Pt reports that he feels limited secondary to L knee pain. LTG Duration 12/31/22 Oswestry Impairment Oswestry Impairment Pt with 76% disability per [employer]. Short Term Goal (STG) Pt with 50% disability per [employer] questionnaire 12/25/22: Pt progressing towards goal. Pt with score of 60%. STG Duration 12/10/22 [facility] Goal (LTG) Pt with <25% disability per [employer] questionnaire LTG Duration 12/31/22 LEFS Impairment Pt with LEFS score of 26/80 Short Term Goal (STG) Pt with LEFS score of 35/80 to decrease LE functional impairment. Progressing towards goal 31/80 on 12/26/22 STG Duration 12/10/22 Asbestos Wire Finisher Goal (LTG) Pt with LEFS score of 45/80 to decrease LE functional impairment. LTG Duration 12/31/22 Activity tolerance Impairment Standing tolerance Impairment Pt reports that he is able to stand for 10 min before needs to sit. Short Term Goal (STG) Pt able to stand for 20 min before needs to sit down to improve tolerance to cleaning/ cooking tasks. Goal unmet on 12/25/22: Pt reports that he is able to stand for 5-10 min before he needs to sit secondary to pain and weakness. STG Duration 12/10/22 Asbestos Wire Finisher Goal (LTG) Pt able to stand for 30 min before need to sit down secondary to pain/fatigue. 01/08/23: Pt reports that he is able to stand for 15-30 min , though has increased pain following. LTG Duration 12/31/22 Assessment Summary Assessment Pt with fair tolerance to PRE today. Pt demonstrates improved stance time on R LE with SLS to 40 seconds. Pt continues to be limited on L LE secondary to knee pain. Pt demonstrates improvement in R knee flexion mobility, though continues to have pain. Pt continues to be challenged with CKC exercises secondary to bilateral knee discomfort. Physical Therapy Plan Frequency and Duration Frequency of Treatment 1x/Week
--- NOTE | 2023-01-08 11:34 | PT.OTN ---
Current Diagnoses Traumatic arthropathy, right knee (01/08/23) Unilateral primary osteoarthritis, right hip (01/08/23) Other specified joint disorders, right hip (01/08/23) Trochanteric bursitis, right hip (01/08/23) Sprain of ligaments of lumbar spine, initial encounter (01/08/23) Bucket-handle tear of medial meniscus, current injury, right knee, initial encounter (01/08/23) Peripheral tear of medial meniscus, current injury, right knee, initial encounter (01/08/23) Complex tear of medial meniscus, current injury, right knee, initial encounter (01/08/23) Other tear of medial meniscus, current injury, right knee, initial encounter (01/08/23) Sprain of unspecified site of right knee, initial encounter (01/08/23) Physical Therapy Treatment Note PT-OP-A Visit Information Start: 11/18/22 17:22 Freq: Status: Active Protocol: Document 01/08/23 11:34 AM (Rec: 01/08/23 17:35 AM [id number]) Out-Patient Physical Therapy Visit Information Visit Information Visit Type Treatment Note Visit Start Time 11:34 Visit Stop Time 12:15 Total Visit Minutes 41 Visit Number 9 Number of LOG RIDER Visits 4 PT-OP-B Current Condition Start: 11/18/22 17:22 Freq: Status: Active Protocol: Document 11/21/22 12:19 AM (Rec: 11/21/22 13:07 AM [id number]) Current Condition History of Current Condition Onset Date 2004 Current Complaints bilateral knee, R hip, low back, neck pain and headaches, R shoulder pain History of Current Condition Pt had an injury to R knee in 2004 that resulted in meniscus tear, since then pt has had 20 surgeries. 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 The repair of his knee used a bone from R hip, which caused traumatic arthritis of the hip . Pt has low back pain as well . Pt has history of headaches and neck pain. Pt with reported weakness of R arm. Pt reports that he also has a meniscus tear on L knee. Hx of pulmonary embolism. Future Testing and Treatments Planned Pt sees his referring provider every 28 days. PT-OP-C Subjective Start: 11/18/22 17:22 Freq: Status: Active Protocol: Document 01/08/23 11:34 AM (Rec: 01/08/23 12:20 AM [id number]) OP-PT Subjective Patient Comments Patient Comments Keven apologizes for missing last tx session as he knows at this is important, but has complicated living situation. Pt is getting an injection for pain today that will replace the suboxone. Pt had imaging of R hip with contrast 2 days ago, though does not have results yet. Pt will Dr. Garcia on Jan 26. Pt reports that he is sore today. Pt reports good compliance with HEP. PT-OP-D Balance Start: 11/18/22 17:22 Freq: Status: Active Protocol: Document 11/19/22 12:19 AM (Rec: 11/19/22 14:14 AM [id number]) Balance Tests Single Limb Standing Single Limb- Right 11 Single Limb- Left 0 Tandem Tandem Standing 30 PT-OP-E Functional Tests Start: 11/18/22 17:22 Freq: Status: Active Protocol: Document 01/08/23 11:34 AM (Rec: 01/08/23 12:20 AM [id number]) Functional Tests 30 Second Sit to Stand Test Score 4 Comments 23 inches PT-OP-K Range of Motion Start: 11/18/22 17:22 Freq: Status: Active Protocol: Document 01/08/23 11:34 AM (Rec: 01/08/23 12:20 AM [id number]) Knee Goniometric Range of Motion Knee Right Flexion Active (degrees) 120 Extension Active (degrees) 0 Left Flexion Active (degrees) 118 Extension Active (degrees) 0 PT-OP-M Strength Start: 11/18/22 17:22 Freq: Status: Active Protocol: Document 11/19/22 12:19 AM (Rec: 11/19/22 14:14 AM [id number]) Hip Strength Hip Manual Muscle Testing Right Flexion (L2) 3+ Fair+ Abduction 3+ Fair+ Adduction 4+ Good+ Left Flexion (L2) 3+ Fair+ Abduction 3+ Fair+ Adduction 4+ Good+ Knee Strength Knee Manual Muscle Testing Right Flexion (S2) 4- Good- Extension (L3) 4- Good- Left Flexion (S2) 4- Good- Extension (L3) 4- Good- Ankle/Foot Strength Ankle and Foot Manual Muscle Testing Right Dorsiflexion (L4) 4+ Good+ Plantarflexion (S1) 4+ Good+ Left Dorsiflexion (L4) 4+ Good+ Plantarflexion (S1) 4+ Good+ PT-OP-Q Treatments Start: 11/18/22 17:22 Freq: Status: Active Protocol: Document 01/08/23 11:34 AM (Rec: 01/08/23 12:20 AM [id number]) Cardio Equipment Recumbent Elliptical (Biodex) Duration (Minutes) 10 Resistance 3 Seat Position 13 Therapeutic Exercises Supine Exercises SAQ Side bilateral Resistance 2# Reps/Minutes 2x10 Standing Exercises Chair squat Reps/Minutes x5 Calf stretch Standing Exercise Name standing calf stretch Side bilateral Equipment Used wedge with UE support from rail Reps/Minutes 2x30 sec Neuro Re-Education Treatment Balance Activities SLS Equipment at railing Comments Pt demonstrates hip drop on R. PT-OP-R Modalities Start: 11/18/22 17:22 Freq: Status: Active Protocol: Document 12/29/22 11:31 NBM (Rec: 12/29/22 13:41 NBM [id number]) Hot Pack/Cold Pack Treatment Cold Pack Location L knee Patient Position Hooklying Treatment Duration (minutes) 10 Patient Tolerance Good Comments LE bolster w/ diaphragmatic breathing PT-OP-T Assessment and Plan Start: 11/18/22 17:22 Freq: Status: Active Protocol: Document 01/08/23 11:34 AM (Rec: 01/08/23 12:20 AM [id number]) Physical Therapy Assessment Goals Pain Impairment Pain rating Impairment Pt reports pain at 8/10 at worst at knees, hip and low back. Short Term Goal (STG) Pt to report pain at 6/10 at worst. 12/25/22: Progressing towards goal; Pt reports pain has been 6-7/10 at the worst. STG Duration 12/10/22 Clinical Project Manager Goal (LTG) Pt to report pain at <4/10 at worst 01/08/23: Pt reports pain at 5 -6/10. Progressing towards goal. LTG Duration 02/18/23 SLS Impairment Balance Impairment Pt unable to SLS on L LE and 11 seconds on R. Short Term Goal (STG) Pt able to SLS for 5 seconds on L LE. Goal met on 12/25/22. Able to hold 5 seconds. STG Duration 12/10/22-achieved [facility] Goal (LTG) Pt able to SLS for 10 seconds on L LE. Goal met: 01/08/23 PT able to hold R LE SLS for 40 seconds. Pt able to hold for 6 seconds on L. LTG Duration 02/18/23 30 sec STS squat Impairment Strength Impairment Pt able to complete 4 STS squats in 30 seconds with use of UE . Short Term Goal (STG) Pt able to complete 8 STS squats in 30 seconds with use of UE. 12/25/22: Progressing towards goal. Pt able to do 6 without use of hands at height of 23 inches. STG Duration 12/10/22 [facility] Goal (LTG) Pt ablet to complete 10 STS squats in 30 seconds without use of UE. 01/08/23: Pt able to do 4 in 30 seconds. Pt reports that he feels limited secondary to L knee pain. LTG Duration 02/18/23 Oswestry Impairment Oswestry Impairment Pt with 76% disability per [employer]. Short Term Goal (STG) Pt with 50% disability per [employer] questionnaire 12/25/22: Pt progressing towards goal. Pt with score of 60%. STG Duration 12/10/22 [facility] Goal (LTG) Pt with <25% disability per [employer] questionnaire LTG Duration 02/18/23 LEFS Impairment Pt with LEFS score of 26/80 Short Term Goal (STG) Pt with LEFS score of 35/80 to decrease LE functional impairment. Progressing towards goal 31/80 on 12/26/22 STG Duration 12/10/22 Clinical Project Manager Goal (LTG) Pt with LEFS score of 45/80 to decrease LE functional impairment. LTG Duration 02/18/23 Activity tolerance Impairment Standing tolerance Impairment Pt reports that he is able to stand for 10 min before needs to sit. Short Term Goal (STG) Pt able to stand for 20 min before needs to sit down to improve tolerance to cleaning/ cooking tasks. Goal unmet on 12/25/22: Pt reports that he is able to stand for 5-10 min before he needs to sit secondary to pain and weakness. STG Duration 12/10/22 Clinical Project Manager Goal (LTG) Pt able to stand for 30 min before need to sit down secondary to pain/fatigue. 01/08/23: Pt reports that he is able to stand for 15-30 min , though has increased pain following. LTG Duration 02/18/23 Assessment Summary Assessment Pt with fair tolerance to PRE today. Pt demonstrates improved stance time on R LE with SLS to 40 seconds. Pt continues to be limited on L LE secondary to knee pain. Pt demonstrates improvement in R knee flexion mobility, though continues to have pain. Pt continues to be challenged with CKC exercises secondary to bilateral knee discomfort. POC discussed with pt, as pt has not met all goals. PT recommends 6 additional weeks of PT to improve strength for functional goals. Physical Therapy Plan Frequency and Duration Frequency of Treatment 1x/Week Duration of treatment (weeks) 13 Plan of Care Start Date 11/19/22 Plan of Care End Date 02/18/23 Therapeutic Interventions Therapeutic Interventions Balance Training,Coordination Training,Gait Training,Home Exercise Program,Joint Mobilizations,Manual Therapy, Neuromuscular Re-education, Patient/Caregiver Education, Self-Care/Home Management,Soft Tissue Mobilization,Taping, Therapeutic Activities, Therapeutic Exercises Modalities Cold Pack/Ice Massage,Electric Stimulation,Hot Packs, Ultrasound Next Visit Focus/Plan Next Note Type Treatment Note Next Visit Plan Consider gait training w/ new SPC. POC: Continue to progress trunk/LE strength and mobility
--- NOTE | 2023-01-12 11:34 | PT.OTN ---
Current Diagnoses Traumatic arthropathy, right knee (01/12/23) Unilateral primary osteoarthritis, right hip (01/12/23) Other specified joint disorders, right hip (01/12/23) Trochanteric bursitis, right hip (01/12/23) Sprain of ligaments of lumbar spine, initial encounter (01/12/23) Bucket-handle tear of medial meniscus, current injury, right knee, initial encounter (01/12/23) Peripheral tear of medial meniscus, current injury, right knee, initial encounter (01/12/23) Complex tear of medial meniscus, current injury, right knee, initial encounter (01/12/23) Other tear of medial meniscus, current injury, right knee, initial encounter (01/12/23) Sprain of unspecified site of right knee, initial encounter (01/12/23) Physical Therapy Treatment Note PT-OP-A Visit Information Start: 11/18/22 17:22 Freq: Status: Active Protocol: Document 01/12/23 11:34 AM (Rec: 01/12/23 12:21 AM [id number]) Out-Patient Physical Therapy Visit Information Visit Information Visit Type Treatment Note Visit Start Time 11:34 Visit Stop Time 12:18 Total Visit Minutes 44 Visit Number 10 PT-OP-B Current Condition Start: 11/18/22 17:22 Freq: Status: Active Protocol: Document 11/21/22 12:19 AM (Rec: 11/21/22 13:07 AM [id number]) Current Condition History of Current Condition Onset Date 2004 Current Complaints bilateral knee, R hip, low back, neck pain and headaches, R shoulder pain History of Current Condition Pt had an injury to R knee in 2004 that resulted in meniscus tear, since then pt has had 20 surgeries. 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 The repair of his knee used a bone from R hip, which caused traumatic arthritis of the hip . Pt has low back pain as well . Pt has history of headaches and neck pain. Pt with reported weakness of R arm. Pt reports that he also has a meniscus tear on L knee. Hx of pulmonary embolism. Future Testing and Treatments Planned Pt sees his referring provider every 28 days. PT-OP-C Subjective Start: 11/18/22 17:22 Freq: Status: Active Protocol: Document 01/12/23 11:34 AM (Rec: 01/12/23 12:21 AM [id number]) OP-PT Subjective Patient Comments Patient Comments Pt reports that he feels more soreness today as he is having an adjustment in pain meds. Pt reports that he had imaging of his R hip, though has not heard results yet. PT-OP-D Balance Start: 11/18/22 17:22 Freq: Status: Active Protocol: Document 11/19/22 12:19 AM (Rec: 11/19/22 14:14 AM [id number]) Balance Tests Single Limb Standing Single Limb- Right 11 Single Limb- Left 0 Tandem Tandem Standing 30 PT-OP-E Functional Tests Start: 11/18/22 17:22 Freq: Status: Active Protocol: Document 01/08/23 11:34 AM (Rec: 01/08/23 12:20 AM [id number]) Functional Tests 30 Second Sit to Stand Test Score 4 Comments 23 inches PT-OP-K Range of Motion Start: 11/18/22 17:22 Freq: Status: Active Protocol: Document 01/08/23 11:34 AM (Rec: 01/08/23 12:20 AM [id number]) Knee Goniometric Range of Motion Knee Right Flexion Active (degrees) 120 Extension Active (degrees) 0 Left Flexion Active (degrees) 118 Extension Active (degrees) 0 PT-OP-M Strength Start: 11/18/22 17:22 Freq: Status: Active Protocol: Document 11/19/22 12:19 AM (Rec: 11/19/22 14:14 AM [id number]) Hip Strength Hip Manual Muscle Testing Right Flexion (L2) 3+ Fair+ Abduction 3+ Fair+ Adduction 4+ Good+ Left Flexion (L2) 3+ Fair+ Abduction 3+ Fair+ Adduction 4+ Good+ Knee Strength Knee Manual Muscle Testing Right Flexion (S2) 4- Good- Extension (L3) 4- Good- Left Flexion (S2) 4- Good- Extension (L3) 4- Good- Ankle/Foot Strength Ankle and Foot Manual Muscle Testing Right Dorsiflexion (L4) 4+ Good+ Plantarflexion (S1) 4+ Good+ Left Dorsiflexion (L4) 4+ Good+ Plantarflexion (S1) 4+ Good+ PT-OP-Q Treatments Start: 11/18/22 17:22 Freq: Status: Active Protocol: Document 01/12/23 11:34 AM (Rec: 01/12/23 12:21 AM [id number]) Cardio Equipment Recumbent Elliptical (Biodex) Duration (Minutes) 7 Resistance 3 Seat Position 15 Therapeutic Exercises Supine Exercises SAQ Side bilateral Resistance 2# Reps/Minutes 2x5 Sitting Exercises LAQ Sitting Exercise Name LAQ Side bilateral Reps/Minutes x15 Standing Exercises Standing TKE Standing Exercise Name Standing TKE with ball Side bilateral Equipment Used blue/white ball, wall Reps/Minutes 8x5 sec calf raise Standing Exercise Name calf raise Side bilateral Equipment Used // bars Reps/Minutes x10 Hip abduction Side bilateral Equipment Used // bars Reps/Minutes 2x5 Calf stretch Standing Exercise Name standing calf stretch Side bilateral Equipment Used wedge with UE support from rail Reps/Minutes 2x30 sec Manual Therapy Treatment Soft Tissue Mobilization Knee Body Location Ubaldo Quads L and R, adductors and ITB Mobilization Type Instrument Assisted,Rolling Intensity/Depth Moderate Body Position Supine Comments rolling pin, supine with beige round bolster under knees PT-OP-R Modalities Start: 11/18/22 17:22 Freq: Status: Active Protocol: Document 12/29/22 11:31 NBM (Rec: 12/29/22 13:41 NBM [id number]) Hot Pack/Cold Pack Treatment Cold Pack Location L knee Patient Position Hooklying Treatment Duration (minutes) 10 Patient Tolerance Good Comments LE bolster w/ diaphragmatic breathing PT-OP-T Assessment and Plan Start: 11/18/22 17:22 Freq: Status: Active Protocol: Document 01/12/23 11:34 AM (Rec: 01/12/23 12:21 AM [id number]) Physical Therapy Assessment Goals Pain Impairment Pain rating Impairment Pt reports pain at 8/10 at worst at knees, hip and low back. Short Term Goal (STG) Pt to report pain at 6/10 at worst. 12/25/22: Progressing towards goal; Pt reports pain has been 6-7/10 at the worst. STG Duration 12/10/22 Alf Goal (LTG) Pt to report pain at <4/10 at worst 01/08/23: Pt reports pain at 5 -6/10. Progressing towards goal. LTG Duration 02/18/23 SLS Impairment Balance Impairment Pt unable to SLS on L LE and 11 seconds on R. Short Term Goal (STG) Pt able to SLS for 5 seconds on L LE. Goal met on 12/25/22. Able to hold 5 seconds. STG Duration 12/10/22-achieved Non Destructive Evaluation Specialist Goal (LTG) Pt able to SLS for 10 seconds on L LE. Goal met: 01/08/23 PT able to hold R LE SLS for 40 seconds. Pt able to hold for 6 seconds on L. LTG Duration 02/18/23 30 sec STS squat Impairment Strength Impairment Pt able to complete 4 STS squats in 30 seconds with use of UE . Short Term Goal (STG) Pt able to complete 8 STS squats in 30 seconds with use of UE. 12/25/22: Progressing towards goal. Pt able to do 6 without use of hands at height of 23 inches. STG Duration 12/10/22 Non Destructive Evaluation Specialist Goal (LTG) Pt ablet to complete 10 STS squats in 30 seconds without use of UE. 01/08/23: Pt able to do 4 in 30 seconds. Pt reports that he feels limited secondary to L knee pain. LTG Duration 02/18/23 Oswestry Impairment Oswestry Impairment Pt with 76% disability per Oswestry. Short Term Goal (STG) Pt with 50% disability per Oswestry questionnaire 12/25/22: Pt progressing towards goal. Pt with score of 60%. STG Duration 12/10/22 Non Destructive Evaluation Specialist Goal (LTG) Pt with <25% disability per Oswestry questionnaire LTG Duration 02/18/23 LEFS Impairment Pt with LEFS score of 26/80 Short Term Goal (STG) Pt with LEFS score of 35/80 to decrease LE functional impairment. Progressing towards goal 31/80 on 12/26/22 STG Duration 12/10/22 Non Destructive Evaluation Specialist Goal (LTG) Pt with LEFS score of 45/80 to decrease LE functional impairment. LTG Duration 02/18/23 Activity tolerance Impairment Standing tolerance Impairment Pt reports that he is able to stand for 10 min before needs to sit. Short Term Goal (STG) Pt able to stand for 20 min before needs to sit down to improve tolerance to cleaning/ cooking tasks. Goal unmet on 12/25/22: Pt reports that he is able to stand for 5-10 min before he needs to sit secondary to pain and weakness. STG Duration 12/10/22 Non Destructive Evaluation Specialist Goal (LTG) Pt able to stand for 30 min before need to sit down secondary to pain/fatigue. 01/08/23: Pt reports that he is able to stand for 15-30 min , though has increased pain following. LTG Duration 02/18/23 Assessment Summary Assessment Pt with fair tolerance to PRE today. Pt continues to have difficulty with CKC activites secondary to irritability at L knee. Pt points to patellar tendon as region of pain with standing exercises. Pt also demonstrates tenderness at distal quads with palpation. Ice applied to bilateral knees post-tx session. Pt would benefit from continued PT to progress LE strength/mobility to improve tolerance to functional tasks. Physical Therapy Plan Frequency and Duration Frequency of Treatment 1x/Week Duration of treatment (weeks) 13 Plan of Care Start Date 11/19/22 Plan of Care End Date 02/18/23 Therapeutic Interventions Therapeutic Interventions Balance Training,Coordination Training,Gait Training,Home Exercise Program,Joint Mobilizations,Manual Therapy, Neuromuscular Re-education, Patient/Caregiver Education, Self-Care/Home Management,Soft Tissue Mobilization,Taping, Therapeutic Activities, Therapeutic Exercises Modalities Cold Pack/Ice Massage,Electric Stimulation,Hot Packs, Ultrasound Next Visit Focus/Plan Next Note Type Treatment Note Next Visit Plan Consider gait training w/ new SPC. POC: Continue to progress trunk/LE strength and mobility
--- NOTE | 2023-01-20 14:17 | PT.OTN ---
Current Diagnoses Traumatic arthropathy, right knee (01/20/23) Unilateral primary osteoarthritis, right hip (01/20/23) Other specified joint disorders, right hip (01/20/23) Trochanteric bursitis, right hip (01/20/23) Sprain of ligaments of lumbar spine, initial encounter (01/20/23) Bucket-handle tear of medial meniscus, current injury, right knee, initial encounter (01/20/23) Peripheral tear of medial meniscus, current injury, right knee, initial encounter (01/20/23) Complex tear of medial meniscus, current injury, right knee, initial encounter (01/20/23) Other tear of medial meniscus, current injury, right knee, initial encounter (01/20/23) Sprain of unspecified site of right knee, initial encounter (01/20/23) Physical Therapy Treatment Note PT-OP-A Visit Information Start: 11/18/22 17:22 Freq: Status: Active Protocol: Document 01/20/23 13:39 SP (Rec: 01/20/23 14:31 SP [id number]) Out-Patient Physical Therapy Visit Information Visit Information Visit Type Treatment Note Visit Start Time 13:39 Visit Stop Time 14:17 Total Visit Minutes 38 Visit Number 11 Number of PAINT PREP TECHNICIAN Visits 1 Evaluation Information Evaluation Date 11/19/22 PT-OP-B Current Condition Start: 11/18/22 17:22 Freq: Status: Active Protocol: Document 11/21/22 12:19 AM (Rec: 11/21/22 13:07 AM [id number]) Current Condition History of Current Condition Onset Date 2004 Current Complaints bilateral knee, R hip, low back, neck pain and headaches, R shoulder pain History of Current Condition Pt had an injury to R knee in 2004 that resulted in meniscus tear, since then pt has had 20 surgeries. 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 The repair of his knee used a bone from R hip, which caused traumatic arthritis of the hip . Pt has low back pain as well . Pt has history of headaches and neck pain. Pt with reported weakness of R arm. Pt reports that he also has a meniscus tear on L knee. Hx of pulmonary embolism. Future Testing and Treatments Planned Pt sees his referring provider every 28 days. PT-OP-C Subjective Start: 11/18/22 17:22 Freq: Status: Active Protocol: Document 01/20/23 13:39 SP (Rec: 01/20/23 14:31 SP [id number]) OP-PT Subjective Patient Comments Patient Comments Pt arrives using SPC, good sequencing/stability noted. He reports trying to organizing things around house, moving bags of clothes, etc and feeling allows him to keep more mobile. He states having to use his SPC for support because leg tire out and feels like will buckle. He reports welcoming to hand outs for exercises should be doing at home. PT-OP-D Balance Start: 11/18/22 17:22 Freq: Status: Active Protocol: Document 11/19/22 12:19 AM (Rec: 11/19/22 14:14 AM [id number]) Balance Tests Single Limb Standing Single Limb- Right 11 Single Limb- Left 0 Tandem Tandem Standing 30 PT-OP-E Functional Tests Start: 11/18/22 17:22 Freq: Status: Active Protocol: Document 01/08/23 11:34 AM (Rec: 01/08/23 12:20 AM [id number]) Functional Tests 30 Second Sit to Stand Test Score 4 Comments 23 inches PT-OP-K Range of Motion Start: 11/18/22 17:22 Freq: Status: Active Protocol: Document 01/08/23 11:34 AM (Rec: 01/08/23 12:20 AM [id number]) Knee Goniometric Range of Motion Knee Right Flexion Active (degrees) 120 Extension Active (degrees) 0 Left Flexion Active (degrees) 118 Extension Active (degrees) 0 PT-OP-M Strength Start: 11/18/22 17:22 Freq: Status: Active Protocol: Document 11/19/22 12:19 AM (Rec: 11/19/22 14:14 AM [id number]) Hip Strength Hip Manual Muscle Testing Right Flexion (L2) 3+ Fair+ Abduction 3+ Fair+ Adduction 4+ Good+ Left Flexion (L2) 3+ Fair+ Abduction 3+ Fair+ Adduction 4+ Good+ Knee Strength Knee Manual Muscle Testing Right Flexion (S2) 4- Good- Extension (L3) 4- Good- Left Flexion (S2) 4- Good- Extension (L3) 4- Good- Ankle/Foot Strength Ankle and Foot Manual Muscle Testing Right Dorsiflexion (L4) 4+ Good+ Plantarflexion (S1) 4+ Good+ Left Dorsiflexion (L4) 4+ Good+ Plantarflexion (S1) 4+ Good+ PT-OP-Q Treatments Start: 11/18/22 17:22 Freq: Status: Active Protocol: Document 01/20/23 13:39 SP (Rec: 01/20/23 14:31 SP [id number]) Therapeutic Exercises Sitting Exercises HS stretch Sitting Exercise Name added to HEP Side bilateral Reps/Minutes 2 x 30 Comments good feedback HS and back stretch LAQ Sitting Exercise Name LAQ- added to HEP Side bilateral Resistance AROM Reps/Minutes 2x10 2 SH Comments cued slow pacing. Standing Exercises Chair squat Resistance AROM arms across chest Equipment Used 20 height black mat table Reps/Minutes STS 4 reps in 20 Comments last rep back pain unable control descend 1 calf raise Standing Exercise Name calf raise Side bilateral Resistance AROM Equipment Used // bars-contact balance only Reps/Minutes x10 Comments cues for TKE awareness Hip abduction Side bilateral Equipment Used // bars-contact balance only Reps/Minutes 8x2 Comments tires at 8 reps increased UE support last 2 reps Calf stretch Standing Exercise Name standing calf stretch Side bilateral Equipment Used LEIGH wedge, UE support from rail Reps/Minutes 2x30 sec Comments cued tall over stance/ stretched LE, opp LE contact floor PT-OP-R Modalities Start: 11/18/22 17:22 Freq: Status: Active Protocol: Document 12/29/22 11:31 NBM (Rec: 12/29/22 13:41 [facility] [id number]) Hot Pack/Cold Pack Treatment Cold Pack Location L knee Patient Position Hooklying Treatment Duration (minutes) 10 Patient Tolerance Good Comments LE bolster w/ diaphragmatic breathing PT-OP-T Assessment and Plan Start: 11/18/22 17:22 Freq: Status: Active Protocol: Document 01/20/23 13:39 SP (Rec: 01/20/23 14:31 SP [id number]) Physical Therapy Assessment Goals Pain Impairment Pain rating Impairment Pt reports pain at 8/10 at worst at knees, hip and low back. Short Term Goal (STG) Pt to report pain at 6/10 at worst. 12/25/22: Progressing towards goal; Pt reports pain has been 6-7/10 at the worst. STG Duration 12/10/22 Longterm Goal (LTG) Pt to report pain at <4/10 at worst 01/08/23: Pt reports pain at 5 -6/10. Progressing towards goal. LTG Duration 02/18/23 SLS Impairment Balance Impairment Pt unable to SLS on L LE and 11 seconds on R. Short Term Goal (STG) Pt able to SLS for 5 seconds on L LE. Goal met on 12/25/22. Able to hold 5 seconds. STG Duration 12/10/22-achieved Longterm Goal (LTG) Pt able to SLS for 10 seconds on L LE. Goal met: 01/08/23 PT able to hold R LE SLS for 40 seconds. Pt able to hold for 6 seconds on L. LTG Duration 02/18/23 30 sec STS squat Impairment Strength Impairment Pt able to complete 4 STS squats in 30 seconds with use of UE . Short Term Goal (STG) Pt able to complete 8 STS squats in 30 seconds with use of UE. 12/25/22: Progressing towards goal. Pt able to do 6 without use of hands at height of 23 inches. 01/20/23: progressin reps in 30sec arms across chest 20 elevated table. STG Duration 12/10/22 prgressing 01/20/23 Longterm Goal (LTG) Pt ablet to complete 10 STS squats in 30 seconds without use of UE. 01/08/23: Pt able to do 4 in 30 seconds. Pt reports that he feels limited secondary to L knee pain. LTG Duration 02/18/23 Oswestry Impairment Oswestry Impairment Pt with 76% disability per Oswestry. Short Term Goal (STG) Pt with 50% disability per Oswestry questionnaire 12/25/22: Pt progressing towards goal. Pt with score of 60%. STG Duration 12/10/22 Pin Attacher Goal (LTG) Pt with <25% disability per Oswestry questionnaire LTG Duration 02/18/23 LEFS Impairment Pt with LEFS score of 26/80 Short Term Goal (STG) Pt with LEFS score of 35/80 to decrease LE functional impairment. Progressing towards goal 31 on 12/26/22 STG Duration 12/10/22 Longterm Goal (LTG) Pt with LEFS score of 45/80 to decrease LE functional impairment. LTG Duration 02/18/23 Activity tolerance Impairment Standing tolerance Impairment Pt reports that he is able to stand for 10 min before needs to sit. Short Term Goal (STG) Pt able to stand for 20 min before needs to sit down to improve tolerance to cleaning/ cooking tasks. Goal unmet on 12/25/22: Pt reports that he is able to stand for 5-10 min before he needs to sit secondary to pain and weakness. STG Duration 12/10/22 Longterm Goal (LTG) Pt able to stand for 30 min before need to sit down secondary to pain/fatigue. 01/08/23: Pt reports that he is able to stand for 15-30 min , though has increased pain following. LTG Duration 02/18/23 Assessment Summary Assessment Pt was able to complete 4x STS in 30 sec from 20 table no UE support, cues for controlled sit last descend sit, reports LEs tired out. Pt initially requires light UE contact during standing AROM ex but increase UE support as reps progress up to 8. He requires seated rest between activities for LE tiring recovery. Physical Therapy Plan Frequency and Duration Frequency of Treatment 1x/Week Duration of treatment (weeks) 13 Plan of Care Start Date 11/19/22 Plan of Care End Date 02/18/23 Therapeutic Interventions Therapeutic Interventions Balance Training,Coordination Training,Gait Training,Home Exercise Program,Joint Mobilizations,Manual Therapy, Neuromuscular Re-education, Patient/Caregiver Education, Self-Care/Home Management,Soft Tissue Mobilization,Taping, Therapeutic Activities, Therapeutic Exercises Modalities Cold Pack/Ice Massage,Electric Stimulation,Hot Packs, Ultrasound Next Visit Focus/Plan Next Note Type Treatment Note Next Visit Plan *Update POC in 3-4 visits. Consider gait training w/ new SPC. POC: Continue to progress trunk/LE strength and mobility
--- NOTE | 2023-01-28 10:50 | PT.OTN ---
Current Diagnoses Traumatic arthropathy, right knee (01/28/23) Unilateral primary osteoarthritis, right hip (01/28/23) Other specified joint disorders, right hip (01/28/23) Trochanteric bursitis, right hip (01/28/23) Sprain of ligaments of lumbar spine, initial encounter (01/28/23) Bucket-handle tear of medial meniscus, current injury, right knee, initial encounter (01/28/23) Peripheral tear of medial meniscus, current injury, right knee, initial encounter (01/28/23) Complex tear of medial meniscus, current injury, right knee, initial encounter (01/28/23) Other tear of medial meniscus, current injury, right knee, initial encounter (01/28/23) Sprain of unspecified site of right knee, initial encounter (01/28/23) Physical Therapy Treatment Note PT-OP-A Visit Information Start: 11/18/22 17:22 Freq: Status: Active Protocol: Document 01/28/23 10:04 SP (Rec: 01/28/23 10:51 SP [id number]) Out-Patient Physical Therapy Visit Information Visit Information Visit Type Treatment Note Visit Start Time 10:04 Visit Stop Time 10:50 Total Visit Minutes 46 Visit Number 12 Number of 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 The repair of his knee used a bone from R hip, which caused traumatic arthritis of the hip . Pt has low back pain as well . Pt has history of headaches and neck pain. Pt with reported weakness of R arm. Pt reports that he also has a meniscus tear on L knee. Hx of pulmonary embolism. Future Testing and Treatments Planned Pt sees his referring provider every 28 days. PT-OP-C Subjective Start: 11/18/22 17:22 Freq: Status: Active Protocol: Document 01/28/23 10:04 SP (Rec: 01/28/23 10:51 SP [id number]) OP-PT Subjective Patient Comments Patient Comments Pt reports got MRI 2 weeks ago and found R hip has bone spurs and soft tissue labral tear and feels using SPC in LUE provides more stable support to R hip being worse vs in RUE providing stability support to L knee. Saw Dr Garcia 01/25 and being referred to ortho for R hip and possibly L knee. PT-OP-D Balance Start: 11/18/22 17:22 Freq: Status: Active Protocol: Document 11/19/22 12:19 AM (Rec: 11/19/22 14:14 AM [id number]) Balance Tests Single Limb Standing Single Limb- Right 11 Single Limb- Left 0 Tandem Tandem Standing 30 PT-OP-E Functional Tests Start: 11/18/22 17:22 Freq: Status: Active Protocol: Document 01/08/23 11:34 AM (Rec: 01/08/23 12:20 AM [id number]) Functional Tests 30 Second Sit to Stand Test Score 4 Comments 23 inches PT-OP-K Range of Motion Start: 11/18/22 17:22 Freq: Status: Active Protocol: Document 01/08/23 11:34 AM (Rec: 01/08/23 12:20 AM [id number]) Knee Goniometric Range of Motion Knee Right Flexion Active (degrees) 120 Extension Active (degrees) 0 Left Flexion Active (degrees) 118 Extension Active (degrees) 0 PT-OP-M Strength Start: 11/18/22 17:22 Freq: Status: Active Protocol: Document 11/19/22 12:19 AM (Rec: 11/19/22 14:14 AM [id number]) Hip Strength Hip Manual Muscle Testing Right Flexion (L2) 3+ Fair+ Abduction 3+ Fair+ Adduction 4+ Good+ Left Flexion (L2) 3+ Fair+ Abduction 3+ Fair+ Adduction 4+ Good+ Knee Strength Knee Manual Muscle Testing Right Flexion (S2) 4- Good- Extension (L3) 4- Good- Left Flexion (S2) 4- Good- Extension (L3) 4- Good- Ankle/Foot Strength Ankle and Foot Manual Muscle Testing Right Dorsiflexion (L4) 4+ Good+ Plantarflexion (S1) 4+ Good+ Left Dorsiflexion (L4) 4+ Good+ Plantarflexion (S1) 4+ Good+ PT-OP-Q Treatments Start: 11/18/22 17:22 Freq: Status: Active Protocol: Document 01/28/23 10:04 SP (Rec: 01/28/23 10:51 SP [id number]) Therapeutic Exercises Supine Exercises TA LTR Supine Exercise Name added to HEP Side bilateral Reps/Minutes x10 piriformis stretch Supine Exercise Name added HEP- hip IR and ER Equipment Used ankle over opp LE Reps/Minutes 60 Comments good feedback hip stretch SKTC Supine Exercise Name added HEP Side bilateral Reps/Minutes 60 Comments good back stretch HS Stretch Supine Exercise Name added c/ AP Side bilateral Reps/Minutes 4 min total PPT Supine Exercise Name PPT> into slide segmental bridge Reps/Minutes TA engage, light/slow lift 4 min total Comments cues for breath, slow pelvis PPT roll then lift Sitting Exercises LAQ Sitting Exercise Name LAQ- reviewed HEP Side bilateral Resistance AROM Reps/Minutes 2x10 2 SH Comments cued slow pacing. Gait Training Gait Activity SPC Description R vs L R hip/L knee issues Device Used SPC Level of Assistance S Treatment Focus normalize gait: center trunk, level pelvis, even katlin Comments Pt feels and demonstrates using SPC in LUE provides more stable support to R hip being worse vs in RUE providing stability support to L knee. Cues given elongate posture, use mirror for self centering trunk trialed SPC in each UE for most normal gait patterning with least pain in L knee and R hip. Does look better SPC in RUE but not as much endurance distance gait before R hip starts hurting. Report less pain R hip if cane in RUE but demonstrates lateral wt shift gait. Cues for not lateral lean and SPC little away from body, will continue to work on. PT-OP-R Modalities Start: 11/18/22 17:22 Freq: Status: Active Protocol: Document 12/29/22 11:31 NBM (Rec: 12/29/22 13:41 [facility] [id number]) Hot Pack/Cold Pack Treatment Cold Pack Location L knee Patient Position Hooklying Treatment Duration (minutes) 10 Patient Tolerance Good Comments LE bolster w/ diaphragmatic breathing PT-OP-T Assessment and Plan Start: 11/18/22 17:22 Freq: Status: Active Protocol: Document 01/28/23 10:04 SP (Rec: 01/28/23 10:51 SP [id number]) Physical Therapy Assessment Goals Pain Impairment Pain rating Impairment Pt reports pain at 8/10 at worst at knees, hip and low back. Short Term Goal (STG) Pt to report pain at 6/10 at worst. 12/25/22: Progressing towards goal; Pt reports pain has been 6-7/10 at the worst. STG Duration 12/10/22 Alf Goal (LTG) Pt to report pain at <4/10 at worst 01/08/23: Pt reports pain at 5 -6/10. Progressing towards goal. LTG Duration 02/18/23 30 sec STS squat Impairment Strength Impairment Pt able to complete 4 STS squats in 30 seconds with use of UE . Short Term Goal (STG) Pt able to complete 8 STS squats in 30 seconds with use of UE. 12/25/22: Progressing towards goal. Pt able to do 6 without use of hands at height of 23 inches. 01/20/23: progressin reps in 30sec arms across chest 20 elevated table. STG Duration 12/10/22 prgressing 01/20/23 Technical Healthcare Consultant Goal (LTG) Pt ablet to complete 10 STS squats in 30 seconds without use of UE. 01/08/23: Pt able to do 4 in 30 seconds. Pt reports that he feels limited secondary to L knee pain. LTG Duration 02/18/23 Oswestry Impairment Oswestry Impairment Pt with 76% disability per Oswestry. Short Term Goal (STG) Pt with 50% disability per Oswestry questionnaire 12/25/22: Pt progressing towards goal. Pt with score of 60%. STG Duration 12/10/22 Technical Healthcare Consultant Goal (LTG) Pt with <25% disability per Oswestry questionnaire LTG Duration 02/18/23 LEFS Impairment Pt with LEFS score of 26/80 Short Term Goal (STG) Pt with LEFS score of 35/80 to decrease LE functional impairment. Progressing towards goal 31/80 on 12/26/22 STG Duration 12/10/22 Technical Healthcare Consultant Goal (LTG) Pt with LEFS score of 45/80 to decrease LE functional impairment. LTG Duration 02/18/23 Activity tolerance Impairment Standing tolerance Impairment Pt reports that he is able to stand for 10 min before needs to sit. Short Term Goal (STG) Pt able to stand for 20 min before needs to sit down to improve tolerance to cleaning/ cooking tasks. Goal unmet on 12/25/22: Pt reports that he is able to stand for 5-10 min before he needs to sit secondary to pain and weakness. STG Duration 12/10/22 Alf Goal (LTG) Pt able to stand for 30 min before need to sit down secondary to pain/fatigue. 01/08/23: Pt reports that he is able to stand for 15-30 min , though has increased pain following. LTG Duration 02/18/23 Assessment Summary Assessment Pt demonstrated very weak core and hip abductor utilizing TS and LS extension when trialed supine bridge and LTR for progression in LE strengthening in supine. Extra time spent TA training and was able to progress LS and hip stretching added to HEP. Trialed use of SPC in either UE to support L knee vs R hip pain having, use of mirror and cues for trunk centering TA slight improvement in gait phases. Physical Therapy Plan Frequency and Duration Frequency of Treatment 1x/Week Duration of treatment (weeks) 13 Plan of Care Start Date 11/19/22 Plan of Care End Date 02/18/23 Therapeutic Interventions Therapeutic Interventions Balance Training,Coordination Training,Gait Training,Home Exercise Program,Joint Mobilizations,Manual Therapy, Neuromuscular Re-education, Patient/Caregiver Education, Self-Care/Home Management,Soft Tissue Mobilization,Taping, Therapeutic Activities, Therapeutic Exercises Modalities Cold Pack/Ice Massage,Electric Stimulation,Hot Packs, Ultrasound Next Visit Focus/Plan Next Note Type Treatment Note Next Visit Plan *Update POC in 3-4 visits. Consider gait training w/ new SPC in R vs LUE. POC: Continue to progress trunk/LE strength and mobility
--- NOTE | 2023-02-03 16:31 | PT-OP ANOTE ---
Pt cx appt on 02/04 secondary to conflicting appt with physician. PT notified L&I on 02/03
--- NOTE | 2023-02-10 16:18 | PT-IP ANOTE ---
PT spoke with pt on phone. Pt reports that he is stuck in traffic, coming from work and is not going to be able to make it in time for PT session on this date. PT instructed pt that he is scheduled for 1 final PT session to review HEP and will be d/c on that visit if appropriate.
--- NOTE | 2023-02-10 16:35 | PT.OPDS ---
Current Diagnoses Traumatic arthropathy, right knee (01/28/23) Unilateral primary osteoarthritis, right hip (01/28/23) Other specified joint disorders, right hip (01/28/23) Trochanteric bursitis, right hip (01/28/23) Sprain of ligaments of lumbar spine, initial encounter (01/28/23) Bucket-handle tear of medial meniscus, current injury, right knee, initial encounter (01/28/23) Peripheral tear of medial meniscus, current injury, right knee, initial encounter (01/28/23) Complex tear of medial meniscus, current injury, right knee, initial encounter (01/28/23) Other tear of medial meniscus, current injury, right knee, initial encounter (01/28/23) Sprain of unspecified site of right knee, initial encounter (01/28/23) Visit Care Team Role Provider Type RENETTA Boateng Attending Provider Non-Staff Family Provider Primary Care Provider Referring Provider Specialty: Nursing Address: [address] [place] [address], [place], [place], [facility] Email: Visit Number Visit Number 12 Discharge Summary PT-OP-B Current Condition Start: 11/18/22 17:22 Freq: Status: Active Protocol: Document 11/21/22 12:19 AM (Rec: 11/21/22 13:07 AM [id number]) Current Condition History of Current Condition Onset Date 2004 Current Complaints bilateral knee, R hip, low back, neck pain and headaches, R shoulder pain History of Current Condition Pt had an injury to R knee in 2004 that resulted in meniscus tear, since then pt has had 20 surgeries. 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 The repair of his knee used a bone from R hip, which caused traumatic arthritis of the hip . Pt has low back pain as well . Pt has history of headaches and neck pain. Pt with reported weakness of R arm. Pt reports that he also has a meniscus tear on L knee. Hx of pulmonary embolism. Future Testing and Treatments Planned Pt sees his referring provider every 28 days. PT-OP-C Subjective Start: 11/18/22 17:22 Freq: Status: Active Protocol: Document 01/28/23 10:04 SP (Rec: 01/28/23 10:51 SP [id number]) OP-PT Subjective Patient Comments Patient Comments Pt reports got MRI 2 weeks ago and found R hip has bone spurs and soft tissue labral tear and feels using SPC in LUE provides more stable support to R hip being worse vs in RUE providing stability support to L knee. Saw Dr Garcia 01/25 and being referred to ortho for R hip and possibly L knee. PT-OP-D Balance Start: 11/18/22 17:22 Freq: Status: Active Protocol: Document 11/19/22 12:19 AM (Rec: 11/19/22 14:14 AM [id number]) Balance Tests Single Limb Standing Single Limb- Right 11 Single Limb- Left 0 Tandem Tandem Standing 30 PT-OP-E Functional Tests Start: 11/18/22 17:22 Freq: Status: Active Protocol: Document 01/08/23 11:34 AM (Rec: 01/08/23 12:20 AM [id number]) Functional Tests 30 Second Sit to Stand Test Score 4 Comments 23 inches PT-OP-K Range of Motion Start: 11/18/22 17:22 Freq: Status: Active Protocol: Document 01/08/23 11:34 AM (Rec: 01/08/23 12:20 AM [id number]) Knee Goniometric Range of Motion Knee Right Flexion Active (degrees) 120 Extension Active (degrees) 0 Left Flexion Active (degrees) 118 Extension Active (degrees) 0 PT-OP-M Strength Start: 11/18/22 17:22 Freq: Status: Active Protocol: Document 11/19/22 12:19 AM (Rec: 11/19/22 14:14 AM [id number]) Hip Strength Hip Manual Muscle Testing Right Flexion (L2) 3+ Fair+ Abduction 3+ Fair+ Adduction 4+ Good+ Left Flexion (L2) 3+ Fair+ Abduction 3+ Fair+ Adduction 4+ Good+ Knee Strength Knee Manual Muscle Testing Right Flexion (S2) 4- Good- Extension (L3) 4- Good- Left Flexion (S2) 4- Good- Extension (L3) 4- Good- Ankle/Foot Strength Ankle and Foot Manual Muscle Testing Right Dorsiflexion (L4) 4+ Good+ Plantarflexion (S1) 4+ Good+ Left Dorsiflexion (L4) 4+ Good+ Plantarflexion (S1) 4+ Good+ PT-OP-T Assessment and Plan Start: 11/18/22 17:22 Freq: Status: Active Protocol: Document 02/10/23 16:35 AM (Rec: 02/10/23 16:40 AM [id number]) Physical Therapy Plan Discharge Physical Therapy Discharge Reasons Plateau in Progress Discharge Comments PT called pt to discuss POC. Pt has had 9 cancellations or no-shows since IE. Pt has attended 12 sessions. Pt reports that he cancelled the last 2 appts due to significant back pain, making standing too challenging to travel to PT. Pt reports that he will see ortho tomorrow to discuss possible hip surgery. Pt reiterated that he would really like to be able to participate in PT, though has been in too much pain to travel to/from PT sessions. Pt would like to stop PT at this time, reporting that he has not seen overall improvement in pain.
== END 2023-02-11 10:38 | disposition home or self-care (01) ==
LOC: PHYS 10:00
PROVIDERS: Family Provider Nurse Practitioner Family; PCP Nurse Practitioner Family; Referring Provider Nurse Practitioner Family; Visit Provider Nurse Practitioner Family
DX: M12.561 Traumatic arthropathy, right knee (principal); M16.11 Unilateral primary osteoarthritis, right hip; M25.851 Other specified joint disorders, right hip; M70.61 Trochanteric bursitis, right hip; S33.5XXA Sprain of ligaments of lumbar spine, initial encounter; S83.211A Bucket-handle tear of medial meniscus, current injury, right knee, initial encounter; S83.221A Peripheral tear of medial meniscus, current injury, right knee, initial encounter; S83.231A Complex tear of medial meniscus, current injury, right knee, initial encounter; S83.241A Other tear of medial meniscus, current injury, right knee, initial encounter; S83.91XA Sprain of unspecified site of right knee, initial encounter
CPT/HCPCS: 97110; 97140; 97162; 97535

== ENCOUNTER 2023-05-04 09:20 | Emergency (ER) | payer OTHER, SELFPAY ==
[2023-05-04 09:37] VITALS: BP 123/61; PULSE 73; RESP 20; TEMP 37; O2SAT 96; BMI 38.0
[2023-05-04 11:31] VITALS: BP 114/65; PULSE 67; RESP 18; TEMP 37.1; O2SAT 100
--- NOTE | 2023-05-04 12:02 | ED.BACK ---
HPI - Back Pain/Injury <Justina Garcia PA-C - Last Filed: 05/04/23 12:06> General Chief Complaint: Back Pain/Injury Stated Complaint: pain lower back problems walking lumbar Time Seen by Provider: 05/04/23 11:16 Source: patient History of Present Illness HPI Narrative: 47-year-old male with chronic lower back, knee, hip pain presents to the ED with 1 week of acute on chronic lower back pain. Patient denies any new trauma. Patient denies urinary hesitancy, urinary incontinence, bowel incontinence. Pain does not radiate. Patient does endorse some intermittent numbness in bilateral legs which is baseline for patient. Patient does have a primary care doctor that he normally sees and specialist. Patient states that he sees his doctor every month. Patient is also slated to have hip surgery. Related Data Previous Rx's Medication Instructions Recorded cyclobenzaprine 10 mg tablet 10 mg PO TID PRN muscle spasm 7 05/04/23 days #21 tabs Allergies Allergy/AdvReac Type Severity Reaction Status Date / Time No Known Drug Allergies Allergy Verified 05/04/23 09:36 Review of Systems <Justina Garcia PA-C - Last Filed: 05/04/23 12:06> Constitutional Constitutional: Denies chills, Denies fatigue, Denies fever(s), Denies frequent falls, Denies lethargy and Denies weakness Eyes Eyes: Denies change in vision, Denies eye discharge, Denies irritation and Denies loss of vision ENT Ears, Nose, Mouth, and Throat: Denies change in voice, Denies dizziness, Denies neck pain, Denies sore throat and Denies throat swelling Cardiovascular Cardiovascular: Denies chest pain, Denies irregular heart rhythm, Denies lightheadedness, Denies palpitations, Denies dyspnea, Denies dyspnea on exertion and Denies orthopnea Respiratory Respiratory: Denies cough, Denies dyspnea, Denies dyspnea on exertion and Denies wheezing Gastrointestinal Gastrointestinal: Denies abdominal pain, Denies change in bowel habits, Denies diarrhea, Denies nausea and Denies vomiting Musculoskeletal Musculoskeletal: Reports back pain, Denies neck pain and Denies numbness Integumentary/Breasts Skin/Breast: Denies pruritus, Denies erythema, Denies rash and Denies wounds Neurologic Neurologic: Denies behavioral changes, Denies confusion, Denies dizziness, Denies frequent falls, Denies loss of vision, Denies numbness and Denies weakness Psychiatric Psychiatric: Denies anxiety, Denies behavioral changes, Denies confusion, Denies depression, Denies homicidal ideation and Denies suicidal ideation Endocrine Endocrine: Denies fatigue, Denies flushing and Denies palpitations Hematologic/Lymphatic Hematologic/Lymphatic: Denies easy bruising Allergic/Immunologic Allergic/Immunologic: Denies urticaria, Denies throat swelling and Denies wheezing Patient History <Justina Garcia PA-C - Last Filed: 05/04/23 12:06> tobacco type: vaping alcohol intake frequency: other Substance Use Type: marijuana Exam <Justina Garcia PA-C - Last Filed: 05/04/23 12:06> Narrative Exam Narrative: Const General:?cooperative, healthy appearing and comfortable HENAZ Head:?normal to inspection Ears:?hearing grossly normal bilaterally Nose:?external nose normal Face and sinus:?normal facial exam and sinuses nontender Mouth:?oral mucosae normal Throat:?posterior oropharynx normal Eyes General:?appearance normal, both eyes and all related structures Neck Neck:?normal visual inspection and no lymphadenopathy noted Resp Effort & Inspection:?normal respiratory effort Auscultation:?clear to auscultation bilaterally Cardio Rate:?regular rate Rhythm:?regular rhythm Musculoskeletal No midline tenderness to palpation. No paraspinal tenderness to palpation. There is full range of motion. Gait is normal. Patient does walk with a cane at baseline. Neuro General:?patient alert, patient awake and patient oriented x3 Initial Vital Signs Initial Vital Signs: Vital Signs Temperature 98.6 F 05/04/23 09:37 Pulse Rate 73 05/04/23 09:37 Respiratory Rate 20 05/04/23 09:37 Blood Pressure 123/61 05/04/23 09:37 Pulse Oximetry 96 05/04/23 09:37 Oxygen Delivery Method Room Air 05/04/23 09:37 <Ambar Gomez DO - Last Filed: 05/04/23 19:10> Initial Vital Signs Initial Vital Signs: Vital Signs Temperature 98.6 F 05/04/23 09:37 Pulse Rate 73 05/04/23 09:37 Respiratory Rate 20 05/04/23 09:37 Blood Pressure 123/61 05/04/23 09:37 Pulse Oximetry 96 05/04/23 09:37 Oxygen Delivery Method Room Air 05/04/23 09:37 Course <Justina Garcia PA-C - Last Filed: 05/04/23 12:06> Orders Ordered: ED Orders 05/04/23 09:43 Consult to [facility] Nutrition Internship Stat Vital Signs Vital signs: Vital Signs - 8 hr 05/04/23 11:31 Temperature 98.8 F Pulse Rate 67 Respiratory Rate 18 Blood Pressure 114/65 Pulse Oximetry 100 Oxygen Delivery Method Room Air <Ambar Gomez DO - Last Filed: 05/04/23 19:10> Orders Ordered: ED Orders 05/04/23 09:43 Consult to [facility] Nutrition Internship Stat Vital Signs Vital signs: Vital Signs - 8 hr 05/04/23 11:31 Temperature 98.8 F Pulse Rate 67 Respiratory Rate 18 Blood Pressure 114/65 Pulse Oximetry 100 Oxygen Delivery Method Room Air MDM - Back Pain/Injury <Justina Garcia PA-C - Last Filed: 05/04/23 12:06> MDM Narrative Medical decision making narrative: 47-year-old male with chronic lower back, knee, hip pain presents to the ED with 1 week of acute on chronic lower back pain. Physical exam is reassuring for no midline tenderness to palpation. Patient appears neurologically intact. Discussed pain control with Flexeril, Tylenol, ibuprofen, lidocaine patches. Recommend follow-up with PCP as soon as possible. ED return precautions discussed with patient. Patient verbalized understanding. Medical records reviewed: Yes Discharge Plan Departure Patient Disposition: Home Clinical Impression: Lower back pain Qualifiers: Chronicity: unspecified Back pain laterality: unspecified Sciatica presence: with sciatica Sciatica laterality: sciatica laterality unspecified Qualified Code(s): M54.40 - Lumbago with sciatica, unspecified side Instructions: DI for Low Back Pain Activity Restrictions/Additional Instructions: You were evaluated in the ED today for an acute exacerbation of chronic lower back pain. You are being prescribed Flexeril for muscle spasms. Please also take 800 mg of ibuprofen every 8 hours, as well as 1000 mg of Tylenol every 8 hours for pain. You may also apply lidocaine patches that are available [id number]. Please follow-up with your PCP as soon as possible for further evaluation. Return to the ED if you have worsening symptoms, urinary difficulties. Prescriptions: New cyclobenzaprine 10 mg tablet 10 mg PO TID PRN (Reason: muscle spasm) 7 Days Qty: 21 0RF Referrals: Andreia Garcia ARNP [Primary Care Provider] - Stand Alone Forms: Patient Portal/API ED Sign-out <Ambar Gomez DO - Last Filed: 05/04/23 19:10> Cosign ED Attending Cosignature Attestation: I was immediately available in the department for consultation.
== END 2023-05-04 11:31 | disposition home or self-care (01) ==
PROVIDERS: Emergency Provider Student in an Organized Health Care Education/Training Program; Family Provider Nurse Practitioner Family; PCP Nurse Practitioner Family
DX: M54.40 Lumbago with sciatica, unspecified side (principal)
CPT/HCPCS: 99281

== ENCOUNTER 2023-05-09 14:33 | Emergency (ER) | payer OTHER, MEDICAID, SELFPAY ==
[2023-05-09 14:44] VITALS: BP 140/79; PULSE 85; RESP 18; TEMP 36.6; O2SAT 98; BMI 35.9
[2023-05-09 15:07] LABS: Add Manual Diff / Slide Review NO; Basophils Absolute Auto 0 /uL (0-100); Basophils Percent Auto 0.7 % (0-2); Eosinophils Absolute Auto 100 /uL (0-450); Eosinophils Percent Auto 1.1 % (2-4); Hematocrit 39.7 % (41-53); Hemoglobin 13.7 g/dL (13.5-17.5); Lymphocytes Absolute Auto 1200 /uL (1100-4500); Lymphocytes Percent Auto 19.7 % (25-40); Mean Corpuscular HGB Conc 34.5 % (30-36); Mean Corpuscular Volume 87.1 fL (80-100); Monocytes Absolute Auto 400 /uL (0-900); Neutrophils Absolute Auto 4400 /uL (1500-7000); Neutrophils Percent Auto 71.5 % (50-75); Platelet Count 314 X10^3/uL (150-400); Red Blood Cell Count 4.57 X10^6/uL (4.5-5.9); Red Cell Distribution Width 14.5 % (11.6-14.8); White Blood Cell Count 6.1 X10^3/uL (4.5-11.0)
[2023-05-09 15:23] LABS: Alanine Aminotransferase 25 IU/L (<50); Albumin 4.6 g/dL (3.5-5.0); Albumin Globulin Ratio 1.3 (1.0-2.8); Alkaline Phosphatase 38 U/L (38-126); Aspartate Aminotransferase 27 IU/L (17-59); BUN Creatinine Ratio 30.6 (6-22); Bilirubin Total 0.7 mg/dL (0.2-1.3); Blood Urea Nitrogen 19 mg/dL (9-20); Calcium 9.8 mg/dL (8.4-10.2); Carbon Dioxide 23 mmol/L (22-32); Chloride 105 mmol/L (98-107); Estimated Glomerular Filt Rate > 60 mL/min (>60); Globulin 3.6 g/dL (1.7-4.1); Glucose 93 mg/dL (70-100); HEMOLYSIS < 15 (0-50); Lipase 47 U/L (23-300); Potassium 4.2 mmol/L (3.4-5.1); Sodium 139 mmol/L (137-145); Total Protein 8.2 g/dL (6.3-8.2)
--- NOTE | 2023-05-09 15:44 | CM.SWNOTE ---
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 sr. manager corporate communications entered the patient room to discuss concerns with patient. Patient disclosed that he has various medical issues and is in a lot of pain. Patient disclosed that it is hard for him to move around and be mobile due to degenerative hip issues. Patient owns a car and has a monthly income of $5,000. Patient reports that he does not know how to rent a place stating that he previously lived in a single wide trailer near [place] but moved to [facility] to be closer to doctors for his medical issues. Patient is currently on L& I and would like to apply for disability. Patient reports that he has been renting a place in [place] for 5 months and is currently living in a [employer] style shed [place] [facility]. It is reported that there are other tenants who live on the property as well. Patient discussed with sr. manager corporate communications that he hears voices outside of his house talking about poisoning him and his dog. Patient also stated that he feels those people poking him with metal wires and has even woken up with palomares and pierced skin. Patient is concerned that this may be the reason for his pain. I don't know if it's in my head or a medical thing but I want to get it checked out. I don't thinks its a psychological thing. Patient reports that he has put motion sensors up on the trees but that they can be turned off. Patient also reports that he does not have windows or running water in his current living situation. Patient has not called the police in response to the voices around his home or poking with wires. I cant get up fast enough to see them outside and if i called the police they'd be gone. Patient also noted that the behavior starts when the landlord is not home. Patient would like to rent an apartment with his dog. STENO POOL SUPERVISOR recommended meeting with PCP and looking into his dog becoming an emotional support animal. sr. manager corporate communications also discussed following up with [facility] for additional help with resources and disability benefits. sr. manager corporate communications to provide patient with resources for applying for disability, [facility], affordable housing , and community action of [facility]. Plan: Patient likely to discharge to home upon medical clearance, patient, to follow up with resources provided. SAMMY Haley, [facility]
--- NOTE | 2023-05-09 17:15 | ED.ABDPAIN ---
HPI - Abdominal Pain General Chief Complaint: Abdominal Pain Stated Complaint: sharp, stabbing ABD pain Time Seen by Provider: 05/09/23 16:12 Source: patient Mode of arrival: Ambulatory History of Present Illness HPI narrative: Patient 47-year-old male presenting today for the 2nd time this week. He was seen here in May 04 for some ongoing back and hip pain which he is also complaining of again today. He has some numbness tingling down his legs. He is chronic degenerative joint issues including in his back in his hips. But also complaining of some abdominal pain feels like someone is poking him from inside sharp and stabbing feels a little nauseous no vomiting or diarrhea. Denies any chest pain. He is homeless. 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 Thinks someone might be poisoning him and his dog he does not think it is psychological thing. Related Data Previous Rx's Medication Instructions Recorded cyclobenzaprine 10 mg tablet 10 mg PO TID PRN muscle spasm 7 05/04/23 days #21 tabs ondansetron 4 mg disintegrating 4 mg PO Q8H PRN nausea and 05/09/23 tablet vomiting #10 tabs Allergies Allergy/AdvReac Type Severity Reaction Status Date / Time No Known Drug Allergies Allergy Verified 05/04/23 09:36 Patient History Social History Smoking Status: Current every day smoker Smoking Status: Current every day smoker tobacco type: vaping alcohol intake frequency: other Substance Use Type: marijuana Exam Initial Vital Signs Initial Vital Signs: Vital Signs Temperature 98 F 05/09/23 14:44 Pulse Rate 85 05/09/23 14:44 Respiratory Rate 18 05/09/23 14:44 Blood Pressure 140/79 05/09/23 14:44 Pulse Oximetry 98 05/09/23 14:44 Oxygen Delivery Method Room Air 05/09/23 14:44 GENERAL: Alert 47-year-old male and in no acute distress. HEENT: Head atraumatic,EOMI, pupils reactive, face symmetric, moist mucous membranes CARDIOVASCULAR: Regular rate and rhythm without murmurs, rubs or gallops. RESPIRATORY: Breath sounds equal bilaterally, no wheezes rales or rhonchi. ABDOMEN: Soft, minimally tender no guarding no rebound EXTREMITIES: Normal range of motion, no clubbing or edema. Neurovascularly intact NEUROLOGICAL: Alert and oriented x4.Normal gait and speech. SKIN: Multiple areas on body with psoriasis like lesions Course Orders Ordered: Discontinued Medications Ketorolac Tromethamine (Ketorolac 30 Mg/Ml Vial) 15 mg IV NOW ONE Stop: 05/09/23 17:17 Last Admin: 05/09/23 17:43 Dose: 15 mg Documented By: ARSENIO Ondansetron HCl (Ondansetron 4 Mg Odt) 4 mg PO NOW PRN PRN Reason: Nausea And Vomiting Ondansetron HCl (Ondansetron 4 Mg/2 Ml Inj) 4 mg IV NOW PRN PRN Reason: Nausea And Vomiting Ondansetron HCl (Ondansetron 4 Mg/2 Ml Inj) 4 mg IV NOW ONE Stop: 05/09/23 17:17 Last Admin: 05/09/23 17:49 Dose: 4 mg Documented By: ARSENIO Vital Signs Vital signs: Vital Signs - 8 hr 05/09/23 14:44 Temperature 98 F Pulse Rate 85 Respiratory Rate 18 Blood Pressure 140/79 Pulse Oximetry 98 Oxygen Delivery Method Room Air MDM - Abdominal Pain Lab Data 05/09/23 14:55 05/09/23 14:55 Labs: Lab Results 05/09/23 05/09/23 Range/Units 14:55 17:21 WBC 6.1 (4.5-11.0) X10^3/uL RBC 4.57 (4.5-5.9) X10^6/uL Hgb 13.7 (13.5-17.5) g/dL Hct 39.7 L (41-53) % MCV 87.1 (80-100) fL MCH 30.0 (26-34) PG MCHC 34.5 (30-36) % RDW 14.5 (11.6-14.8) % Plt Count 314 (150-400) X10^3/uL Neut % (Auto) 71.5 (50-75) % Lymph % (Auto) 19.7 L (25-40) % Darke % (Auto) 7.0 (3-14) % Eos % (Auto) 1.1 L (2-4) % Baso % (Auto) 0.7 (0-2) % Neut # (Auto) 4400 (5203-7254) /uL Lymph # (Auto) 1200 (0036-1631) /uL Darke # (Auto) 400 (0-900) /uL Eos # (Auto) 100 (0-450) /uL Baso # (Auto) 0 (0-100) /uL Sodium 139 (137-145) mmol/L Potassium 4.2 (3.4-5.1) mmol/L Chloride 105 (98-107) mmol/L Carbon Dioxide 23 (22-32) mmol/L BUN 19 (9-20) mg/dL Creatinine 0.62 L (0.66-1.25) mg/dL Estimated GFR > 60 (>60) mL/min BUN/Creatinine Ratio 30.6 H (6-22) Glucose 93 (70-100) mg/dL Calcium 9.8 (8.4-10.2) mg/dL Total Bilirubin 0.7 (0.2-1.3) mg/dL AST 27 (17-59) IU/L ALT 25 (<50) IU/L Alkaline Phosphatase 38 (38-126) U/L Total Protein 8.2 (6.3-8.2) g/dL Albumin 4.6 (3.5-5.0) g/dL Globulin 3.6 (1.7-4.1) g/dL Albumin/Globulin Ratio 1.3 (1.0-2.8) Lipase 47 (23-300) U/L Ur Bilirubin Confirm Cancelled Urine RBC None seen (0-5/HPF) Urine WBC 0-1/hpf (0-5/HPF) Ur Squamous Epith Cells None seen (0-5/HPF) Calcium Oxalate Crystal Occasional H Urine Bacteria None seen (None) Urine Mucus 1+ H (Negative) Ur Culture Indicated? Cult not indicated Vol Urine Centrifuged 10ml (spun) Point of care testing: Urine Dip Bedside Urine Glucose Negative Bedside Urine Bilirubin + 1 Bedside Urine Ketone +/- 5 Urine Specific [place] 1.025 Bedside Urine Occult Blood - Negative Bedside Urine pH 5.5 Bedside Urine Protein +/- 15 Bedside Urine Urobilinogen - Negative Bedside Urine Nitrite - Negative Bedside Urine Leukocytes +/- [address] scan - abdomen/pelvis: Radiologist's Impression: PROCEDURE: CT ABDOMEN PELVIS W CON INDICATIONS: ab pain TECHNIQUE: After the administration of intravenous contrast, axial sections acquired from the lung bases to the pubic symphysis. Coronal and sagittal reformats were performed. For radiation dose reduction, the following was used: automated exposure control, adjustment of mA and/or kV according to patient size. COMPARISON: [facility], CR, XR PELVIS WITH LATERAL HIP RIGHT, 04/28/2023, 12:49. FINDINGS: Image quality: Diagnostic. Lower Chest: No significant findings. ABDOMEN: Liver: No solid mass. Gallbladder: No radiopaque gallstones or wall thickening. Biliary ducts: No biliary dilation. Pancreas: No ductal dilation. Spleen: Size is within normal limits. Adrenal Glands: No adrenal nodules. Kidneys and Ureters: No hydronephrosis. No solid mass. No complex renal cystic lesion which requires follow up. Stomach and Bowel: A normal appendix is seen, as on series 2, image 60. No focal right lower quadrant inflammatory changes are seen. No dilated loops of small bowel are seen. Gaseous distention of the colon is seen, measuring nearly 9 cm at the level of the transverse colon. A moderate amount of stool can be seen within the proximal colon. The stomach is decompressed at the time of this study, limiting its evaluation. Peritoneum: No abnormal intraperitoneal fluid. No free air. Ventral Wall: No significant ventral hernia. Periumbilical postoperative change can be seen. Abdominal Nodes: No retroperitoneal or mesenteric adenopathy by size criteria. Vessels: Aorta and inferior vena cava are normal in size. PELVIS: Pelvic Organs: Unremarkable. Bladder: No bladder wall thickening, accounting for underdistention. Pelvic Nodes: No enlarged lymph nodes. Miscellaneous: No inguinal hernias are seen. Bones: No aggressive osseous abnormality. Moderate levoconvex lumbar scoliosis is seen. Multiple levels of significant lumbar spine degenerative change can be seen. IMPRESSION: Gaseous distention is seen of the colon. A moderate amount of stool is seen within the colon proximally. No dilated loops of small bowel are seen. Additional findings: Periumbilical postoperative change Levoconvex scoliosis Premature lumbar spine degenerative change Dictated by: Chirag Gregg M.D. on 05/09/2023 at 16:42 MDM Narrative Medical decision making narrative: Patient 47-year-old male presents today with ongoing back pain and abdominal pain. He does have housing security issues he has been evaluated by social work. Not gravely disabled suicidal or homicidal Blood work has been reviewed no leukocytosis nor anemia creatinine 0.62, bilirubin 0.7 AST 27 ALT [address] abdomen pelvis does not show any acute abnormality no gross bony abnormality some scoliosis is seen At this time no cause of ongoing back pain likely degenerative no acute cause of abdominal pain. Supportive care only. Discharge Plan Departure Patient Disposition: Home Clinical Impression: Abdominal pain Instructions: DI for Abdominal Pain-Adult Activity Restrictions/Additional Instructions: *You have been diagnosed with abdominal pain *What to do: At this time increase fluids as tolerated may increase diet as tolerated *Continue to take medications as directed Zofran 4 mg every 8 hours if needed for nausea or vomiting --> [facility] *Follow up with your primary care provider in 2-3 days or call [phone] *Return to ER if you should have increase pain vomiting weakness [or] any new, worsening or concerning symptoms Prescriptions: New ondansetron 4 mg tablet,disintegrating 4 mg PO Q8H PRN (Reason: nausea and vomiting) Qty: 10 0RF No Action cyclobenzaprine 10 mg tablet 10 mg PO TID PRN (Reason: muscle spasm) 7 Days Qty: 21 0RF Referrals: Andreia Garcia ARNP [Primary Care Provider] - Stand Alone Forms: Patient Portal/API
--- NOTE | 2023-05-09 17:22 | PC.NURSE ---
to CT per stretcher
[2023-05-09] MEDS: KETOROLAC 30 MG/ML VIAL 15 MG IV (17:43)
[2023-05-09] MEDS: ONDANSETRON 4 MG/2 ML INJ IV (17:49)
[2023-05-09 18:32] VITALS: BP 112/67; PULSE 67; RESP 16; O2SAT 97
[2023-05-09 19:30] LABS: Bacteria Urine None Seen; Calcium Oxalate Crystals Urine Occasional; RBC Urine None Seen (0-5/HPF); Squamous Epithelial Cell Urine None Seen (0-5/HPF); Urine Volume 10mL (spun); WBC Urine 0-1/HPF (0-5/HPF)
[2023-05-09 19:31] LABS: Culture Indicated Urine Cult Not Indicated; Mucus Urine 1+ (Negative)
== END 2023-05-09 18:33 | disposition home or self-care (01) ==
PROVIDERS: Emergency Provider Emergency Medicine; Family Provider Nurse Practitioner Family; PCP Nurse Practitioner Family
DX: R10.9 Unspecified abdominal pain (principal)
CPT/HCPCS: 36415; 74177; 80053; 81003; 81015; 83690; 85025; 96374; 96375; 99284; J1885; J2405; Q9967

== ENCOUNTER 2023-05-10 22:47 | Emergency (ER) | payer OTHER, MEDICAID, SELFPAY ==
[2023-05-10 22:56] VITALS: BP 125/83; PULSE 89; RESP 18; TEMP 36.1; O2SAT 94; BMI 35.9
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
== END 2023-05-10 23:26 | disposition home or self-care (01) ==
PROVIDERS: Emergency Provider Emergency Medicine; Family Provider Nurse Practitioner Family; PCP Nurse Practitioner Family
DX: L85.3 Xerosis cutis (principal)
CPT/HCPCS: 99281; 99282